=== PATIENT | female | born 1965 | race Caucasian/White ===

== ENCOUNTER → 2020-11-09 12:40 | Outpatient (CLI) | payer OTHER, SELFPAY ==
--- NOTE | ~2020-11-09 | MM_ITS ---
EXAMINATION: MM screening [facility] BI w jackson HISTORY: Screening mammogram TECHNIQUE: Craniocaudal and mediolateral oblique 3-D tomosynthesis images were obtained and synthetic 2-D images were generated. CAD analysis was submitted and interpreted. COMPARISON: 03/04/2019, 08/21/2016 BREAST PARENCHYMAL COMPOSITION: There are scattered areas of fibroglandular density. FINDINGS: There is no evidence of suspicious mass, calcification, or architectural distortion to sugg est malignancy in either breast. There has been no suspicious interval change. IMPRESSION: 1. No mammographic evidence of malignancy. 2. Recommend routine screening mammography in one year. BI-RADS Category 1: Negative Reviewed, dictated and finalized at location A.
--- NOTE | ~2020-11-09 | US_ITS ---
EXAMINATION: US transvaginal EXAM DATE: 11/09/2020 13:18 INDICATION: Post menopausal bleeding. TECHNIQUE: Pelvic transvaginal sonogram was performed. There are multiple grayscale and Doppler imag es available for interpretation. Comparison is made to prior examination from 08/01/2016. FINDINGS: Uterus measures 10.4 x 5.5 x 6.4 cm, with several small fibroids identified measuring up t o 2.6 cm. Endometrial stripe measures up to 10 mm, considered mildly thickened. There are nabothian cysts. There is no free pelvic fluid. Right adnexa: The ovary measures 4.1 x 3.3 x 3.5 cm, contains a hypoechoic cystic lesion measuring 3. 1 x 2.7 x 2.8 cm, nonspecific. Differential diagnosis includes endometrioma, hemorrhagic cyst, cystic ovarian neoplasm (would favor benign histology). This is new compared to 2017. Recommend 6 month fol low-up ultrasound. Ovarian vascular flow confirmed. Left adnexa: The ovary measures 2.0 x 1.3 x 2.3 cm and is morphologically normal. Ovarian vascular fl ow confirmed. IMPRESSION: 1. Mildly thickened endometrium, measurement up to 10 mm. Could be hyperplasia. Cancer not excludabl e. Consider histologic correlation if symptoms persist. 2. Nonspecific right ovarian cystic lesion; recommend 6 month follow-up ultrasound. Reviewed, dictated and finalized at location A. IMPRESSION: 1. Mildly thickened endometrium, measurement up to 10 mm. Could be hyperplasia . Cancer not excludable. Consider histologic correlation if symptoms persist. 2. Nonspecific right ovarian cystic lesion; recommend 6 month follow-up ultras ound.
== END ==
PROVIDERS: Visit Provider Obstetrics & Gynecology
DX: Z12.31 Encounter for screening mammogram for malignant neoplasm of breast (principal); N95.0 Postmenopausal bleeding; R93.89 Abnormal findings on diagnostic imaging of other specified body structures
CPT/HCPCS: 76830; 77063; 77067

== ENCOUNTER → 2021-03-26 13:15 | Outpatient (CLI) | payer OTHER, SELFPAY ==
--- NOTE | ~2021-03-26 | US_ITS ---
EXAMINATION: US transvaginal EXAM DATE: 03/26/2021 13:46 INDICATION: Postmenopausal bleeding. TECHNIQUE: Pelvic transvaginal sonogram was performed. There are multiple grayscale and Doppler imag es available for interpretation. Comparison is made to prior examination from 11/09/2020. FINDINGS: Uterus measures 9.4 x 4.5 x 6.0 cm, with several small fibroids suspected up to 3 cm. Endo metrial stripe measures 4 mm, within normal limits. There is no free pelvic fluid. Right adnexa: The ovary measures 2.2 x 1.2 x 1.6 cm and is morphologically normal. Ovarian vascular f low confirmed. Left adnexa: The ovary measures 2.4 x 1.9 x 2.5 cm and is morphologically normal. Ovarian vascular fl ow confirmed. IMPRESSION: 1. Fibroids. 2. Normal endometrial thickness. Reviewed, dictated and finalized at location A.
== END ==
PROVIDERS: PCP Physician Assistant; Visit Provider Nurse Practitioner
DX: N95.0 Postmenopausal bleeding (principal); D25.9 Leiomyoma of uterus, unspecified
CPT/HCPCS: 76830

== ENCOUNTER → 2022-04-22 15:19 | Outpatient (CLI) | payer OTHER, SELFPAY ==
--- NOTE | ~2022-04-22 | MM_ITS ---
EXAMINATION: MM screening [facility] BI w jackson HISTORY: Screening mammogram TECHNIQUE: Craniocaudal and mediolateral oblique 3-D tomosynthesis images were obtained and synthetic 2-D images were generated. CAD analysis was submitted and interpreted. COMPARISON: 11/09/2020, 03/14/2019, 08/21/2016 BREAST PARENCHYMAL COMPOSITION: There are scattered areas of fibroglandular density. FINDINGS: No suspicious mass, calcification, or architectural distortion are identified in either sanjuana ast to suggest malignancy. There has been no suspicious interval change. IMPRESSION: 1. No mammographic evidence of malignancy. 2. Recommend routine screening mammography in one year. BI-RADS Category 1: Negative Reviewed, dictated and finalized at location A.
--- NOTE | ~2022-04-22 | DEXA_ITS ---
Bone Density Report Name: VERÓNICA THAKUR Age: 56 Sex: Female Ethnicity: White Date of : 1965 Indication: postmenopausal; screening for osteoporosis; parental hip fracture; Referring Provider: KAYLEN, IVAN Study: Bone densitometry was performed. Exam Date: April 22, 2022 Accession number: [id number] Bone Density: Region BMD T-score Z-score Classification AP Spine (L1, L2, L3) 1.008 -0.1 1.2 Normal Femoral Neck (Left) 0.752 -0.9 0.3 Normal Total Hip (Left) 0.988 0.4 1.2 Normal Femoral Neck (Right) 0.695 -1.4 -0.2 Osteopenia Total Hip (Right) 0.935 -0.1 0.8 Normal Total Hip Mean 0.962 0.2 1.0 Normal World Health Organization criteria for BMD impression classify patients as: Normal (T-score at or above -1.0), Osteopenia (T-score between -1.0 and -2.5), or Osteoporosis (T-score at or below -2.5). 10-year Fracture Risk(1): Major Osteoporotic Fracture 13% Hip Fracture 0.6% Reported Risk Factors: [place] (), Neck BMD=0.695, BMI=20.8, parental fracture (1) FRAX(R) Version 3.08. Fracture probability calculated for an untreated patient. Fracture probability may be lower if the patient has received treatment. Clinical Information Provided by Patient: Parent has had a hip fracture Has used the following medications: Vitamin D, Calcium Patient maximum height was 68 Menopause Age: 56 Drinks caffeinated beverages Onset of menses at age 10 Number of children 2 Impression: The patient has low bone mass, based on the Right Femoral Neck T-score. The patient has an estimated ten-year risk of hip fracture of 0.6% and an estimated ten-year risk of major fracture of 13%, based on the WHO FRAX algorithm. The patient has risk factors, including: parental hip fracture. Discussion: BONE DENSITY IS LOW AT ONE OR MORE SKELETAL SITES. This patient's lowest T-score is low at one or more skeletal sites. It meets the World Health Organization's (WHO) criteria for ?low bone mass? (T-score between -1.0 and -2.5). The patient's 10-year risk of fracture as calculated by FRAX is less than the threshold where pharmacological therapy is recommended by the National Osteoporosis Foundation (NOF). However, all treatment decisions require clinical judgment and consideration of individual patient factors, including patient preferences, comorbidities, previous drug use, risk factors not captured in the FRAX model (e.g., frailty, falls, vitamin D deficiency, increased bone turnover, interval significant decline in bone density) and possible under or overestimation of fracture risk by FRAX. The patient should follow a healthful lifestyle (good nutrition with adequate calcium and vitamin D, and appropriate weight-bearing exercise). Follow-Up: Consider repeating this study in 2 to 3 years to reassess this jorge luis
== END ==
PROVIDERS: PCP Physician Assistant; Visit Provider Nurse Practitioner
DX: Z12.31 Encounter for screening mammogram for malignant neoplasm of breast (principal); Z78.0 Asymptomatic menopausal state; M85.851 Other specified disorders of bone density and structure, right thigh
CPT/HCPCS: 77063; 77067; 77080

== ENCOUNTER → 2023-07-29 13:01 | Outpatient (CLI) | payer OTHER, SELFPAY ==
--- NOTE | ~2023-07-29 | MM_ITS ---
EXAMINATION: MM screening [facility] BI w jackson HISTORY: Screening TECHNIQUE: Craniocaudal and mediolateral oblique 3-D tomosynthesis images were obtained and synthetic 2-D images were generated. CAD analysis was submitted and interpreted. COMPARISON Comparison to multiple prior studies sequentially, with oldest reviewed study dated 2016. BREAST PARENCHYMAL COMPOSITION: Not dense: There are scattered areas of fibroglandular density. FINDINGS: There is no evidence of suspicious mass, calcification, or architectural distortion to sugg est malignancy in either breast. There has been no suspicious interval change. IMPRESSION: 1. No mammographic evidence of malignancy. 2. Recommend routine screening mammography in one year. BI-RADS Category 1: Negative Reviewed, dictated and finalized at location A. GNATED BROKER
== END ==
PROVIDERS: PCP Nurse Practitioner; Visit Provider Nurse Practitioner
DX: Z12.31 Encounter for screening mammogram for malignant neoplasm of breast (principal)
CPT/HCPCS: 77063; 77067

== ENCOUNTER 2024-08-22 10:06 | Outpatient (CLI) | payer OTHER, SELFPAY ==
--- NOTE | ~2024-08-22 | DEXA_ITS ---
Bone Density Report Name: VERÓNICA THAKUR Age: 58 Sex: Female Ethnicity: White Date of : 1965 Indication: postmenopausal; screening for osteoporosis; parental hip fracture; height loss; Referring Provider: KAYLEN, IVAN Study: Bone densitometry was performed. Exam Date: August 22, 2024 Accession number: [id number] Bone Density: Region BMD T-score Z-score Classification AP Spine(L1-L4) 1.017 -0.3 1.2 Normal Femoral Neck (Left) 0.716 -1.2 0.1 Osteopenia Total Hip (Left) 0.937 0.0 1.0 Normal Femoral Neck (Right) 0.634 -1.9 -0.6 Osteopenia Total Hip (Right) 0.861 -0.7 0.3 Normal Total Hip Mean 0.899 -0.4 0.7 Normal World Health Organization criteria for BMD impression classify patients as: Normal (T-score at or above -1.0), Osteopenia (T-score between -1.0 and -2.5), or Osteoporosis (T-score at or below -2.5). 10-year Fracture Risk(1): Major Osteoporotic Fracture 16% Hip Fracture 1.2% Reported Risk Factors: [place] (), Neck BMD=0.634, BMI=20.2, parental fracture (1) FRAX(R) Version 3.08. Fracture probability calculated for an untreated patient. Fracture probability may be lower if the patient has received treatment. Clinical Information Provided by Patient: Parent has had a hip fracture Has used the following medications: Vitamin D, Calcium Patient maximum height was 68 Menopause Age: 57 Drinks caffeinated beverages Onset of menses at age 10 Number of children 2 Impression: The patient has low bone mass, based on the Right Femoral Neck T-score. The patient has an estimated ten-year risk of hip fracture of 1.2% and an estimated ten-year risk of major fracture of 16%, based on the WHO FRAX algorithm. The patient has risk factors, including: parental hip fracture. Discussion: BONE DENSITY IS LOW AT ONE OR MORE SKELETAL SITES. This patient's lowest T-score is low at one or more skeletal sites. It meets the World Health Organization's (WHO) criteria for ?low bone mass? (T-score between -1.0 and -2.5). The patient's 10-year risk of fracture as calculated by FRAX is less than the threshold where pharmacological therapy is recommended by the National Osteoporosis Foundation (NOF). However, all treatment decisions require clinical judgment and consideration of individual patient factors, including patient preferences, comorbidities, previous drug use, risk factors not captured in the FRAX model (e.g., frailty, falls, vitamin D deficiency, increased bone turnover, interval significant decline in bone density) and possible under or overestimation of fracture risk by FRAX. The patient should follow a healthful lifestyle (good nutrition with adequate calcium and vitamin D, and appropriate weight-bearing exercise). Follow-Up: Consider repeating this study in 2 to 3 years to reassess this patient's status, or sooner if there is some new clinical indication. Reported by: ISABEL on 08/22/2024 10:43:00 AM. Reviewed, dictated and finalized at location [facility]
--- OUTSIDE RECORDS SUMMARY | 2024-08-22 11:22 | XMS_ITS | Encounter Summary ---
Author Organization [facility] Address [address] [address] Care Team Providers Care Cone Treater Name Role Phone Alber CORDOVA MD, Mk Marie Primary Care Provider [phone] Encounter Details Date Type Department Care Team (Late st Contact Info) Description 11/05/2017 Lab Requisition [facility] Care DermPath Lab [address] [place] [phone] Nu Borrero MD [address] [place] [phone] Social History Tobacco Use Types Packs/Day Years Used Date Smoking Tobacco: Never Smokeless Tobacco: Never Alcohol Use Standard Drinks/Week Comments No 0 (1 standard drink = 0.6 oz pur e alcohol) Sex and Gender Information Value Date Recorded Sex Assigned at Not on file Gender Identity Not on file Sexual Orientation Not on file documented as of this encounter Plan of Treatment Not on file documented as of this encounter Procedures Procedure Name Priority Date/Time Associated Diagnosis Comments DERMATOPATHOLOGY Routine 11/03/2017 12:0 0 AM CDT documented in this encounter Results * DERMATOPATHOLOGY (11/03/2017 12:00 AM CDT) Case Report Dermatopathology Report Case: [id number] Authorizing Provider: Nu Borrero MD Collected: 11/03/2017 12:00 AM Pathologist: Chelsy Nur MD Received: 11/05/2017 06:49 AM Specimen: Skin, right foot 3:26 PM T DERMATOPATHOLOGY LABORATORY Final Diagnosis Specimen A. SKIN, right foot: VERRUCA VULGARIS (B07.8) PRESENT AT MARGIN 3:26 PM T DERMATOPATHOLOGY LABORATORY Clinical History Received is one formalin filled container labeled with the patients name and designated right foot. The specimen consists of a [id number] excision of skin. The margin is inked green. The specimen is bisected lengthwise and submitted in 1 cassette. Jar 0. 3:26 PM T DERMATOPATHOLOGY LABORATORY Gross Description Received is one formalin filled container labeled with the patients name and designated right foot. The specimen consists of a [id number] excision of skin. The margin is inked green. The specimen is bisected lengthwise and submitted in 1 cassette. Jar 0. 3:26 PM CDT DERMATOPATHOLOGY LABORATORY Microscopic Description Specimen A. SKIN, right foot: There is digitated epidermal hyperplasia, hypergranulosis, vacuolated granular layer cells, and compact hyperorthokeratosis . This lesion is present at the margin of the specimen. 3:26 PM T DERMATOPATHOLOGY LABORATORY Disclaimer An external and internal positive and negative controls are appropriate for the histochemical, immunohistochemical and immunofluorescence stain(s) in this case (if any), except where stated explicitly. The performance characteristics of the stain(s) cited in this report were developed and its performance characteristic determined by the Dermatopathology Laboratory at [facility]. These tests need not be, and therefore are not, approved by the [place] Food and Drug Administration. The tests are used for clinical purposes. Billing Codes Specimen Charges Stain Charges 71632 1 3:26 PM CDT DERMATOPATHOLOGY LABORATORY Embedded Images 3:26 PM CDT DERMATOPATHOLOGY LABORATORY Pathology/Cytolog y TISSUE SPECIMEN FROM SKIN / Unknown 11/03/2017 11/05/2017 6:49 AM CDT Nu Borrero MD LAB - PATHOLOGY/C YTOLOGY ORDERABLES DERMATOPATHOLOGY LABORATORY [facility] - Department of Dermatology [address] [place] [address], 5th Floor Lab [address] [phone] documented in this encounter Visit Diagnoses Not on filedocumented in this encounter Care Teams Cone Treater Relationship Specialty Start Date End Date Mk Campo III, MD [address] [address] PCP - General Internal Medicine 01/22/17 documented as of this encounter
--- OUTSIDE RECORDS SUMMARY | 2024-08-22 11:22 | XMS_ITS | Referral Summary ---
Author Organization [facility] Address [address] [place] [address] Phone Care Team Providers Care Reamer Hand Name Role Phone IGOR Pascal Jr., Charles Terrazas Primary Care Provide r Encounters Date Type Department Care Team Description 07/21/2024 Telephone [facility] Primary Care [address] [place] [phone] Scan results 07/21/2024 8:00 AM TOOLSMITH - 07/21/2024 11:59 PM TOOLSMITH Hospital Encounter [facility] [address] [place] [address] Mass of left side of neck Discharge Disposition: Discharge to home or self care 07/21/2024 Orders Only [facility] Primary Care [address] [place] [phone] Charles Pascal Jr., PA Mass of left side of neck (Primary Dx) 07/18/2024 Orders Only [facility] Primary Care [address] [place] [phone] Charles Pascal Jr., PA Mass of left side of neck (Primary Dx) 07/12/2024 2:30 PM TOOLSMITH Office Visit [facility] Primary [facility] [address] [facility] [address] [place] [phone] Charles Pascal Jr., PA Mass of left side of neck (Primary Dx); Screening for colon cancer from Last 3 Months Allergies Active Allergy Reactions Criticality Noted Date Comments Penicillins Other (See comments),Unknown Low 2016 INFANT Medications multivitamin with minerals capsule Take by mouth inspector general before breakfast Active Active Problems No known active problems Immunizations Immunization Administration Dates Next Due Influenza, Unspecified 04/04/2024(Deferr ed: Patient decision),04/30/2023(Deferred: Patient Refused),04/04/2023(Deferred: Patient decision),03/29/2022(Deferred: Patient Refused) Social History Tobacco Use Types Packs/Day Years Used Date Smoking Tobacco: Never Smokeless Tobacco: Never Tobacco Cessation:Counseling Given: Not Answered AUDIT-C Answer Date Recorded Q1: How often do you have a drink containing alc ohol? Never 07/12/2024 Average Number of Drinks Not on file 025 Frequency of Binge Drinking Not on file 06/29 PHQ-2 Answer Date Recorded PHQ-2 Total Score (If total score is 3 or more points, staff should administer the PHQ-9) 0 07/12/2024 Comments No Sex and Gender Information Value Date Recorded Sex Assigned at Not on file Legal Sex Female 5:38 PM TOOLSMITH Gender Identity Not on file Sexual Orientation Not on file Last Filed Vital Signs Vital Sign Reading Time Taken Comments Blood Pressure 100/70 07/12/2024 2:19 PM TOOLSMITH Pulse 73 07/12/2024 2:19 PM TOOLSMITH Temperature 36.9 C (98.5 F) 07/12/2024 2:19 PM TOOLSMITH Respiratory Rate 16 07/12/2024 2:19 PM TOOLSMITH Oxygen Saturation 96% 07/12/2024 2:19 PM TOOLSMITH Inhaled Oxygen Concentration - - Weight 55.3 kg (122 lb) 07/12/2024 2:19 PM TOOLSMITH Height 171.5 cm (5' 7.5 ) 07/12/2024 2:19 PM TOOLSMITH Body Mass Index 18.83 07/12/2024 2:19 PM TOOLSMITH Plan of Treatment Not on file Procedures Procedure Name Priority Date/Time Associated Diagnosis Comments CT SOFT TISSUE NECK W CONTRAST Schedule Routine, Read Routine (OP Routine) 07/21/2024 8:40 AM TOOLSMITH Mass of left side of neck POCT CREATININE FOR CONTRAST EVALUATION Routine 07/21/2024 8:34 AM TOOLSMITH COLONOSCOPY Routine 02/28/2021 SCREENING MAMMOGRAM 2D BILATERAL Routine 04/10/2014 10:45 AM CDT from Last 3 Months or Most Recently Relevant to Health Maintenance Results * CT Neck Soft Tissue W Contrast (07/21/2024 8:40 AM TOOLSMITH) Anatomical Region Laterality Modality Head and Neck N/A Computed Tomogra phy 07/21/2024 8:59 AM TOOLSMITH Narrative 07/21/2024 9:17 AM TOOLSMITH EXAM DESCRIPTION: CT SOFT TISSUE NECK W CONTRAST REASON FOR STUDY: Left posterior neck mass for 6 weeks. No provided history of trauma or inciting and/or aggravating events. No provided past medical, to include cancer, history. No provided past surgical history. TECHNIQUE: Post IV contrast scanning from skull base through lung apices. Reconstructed MPR images reviewed. All images stored on PACS. Automated exposure control was used as a dose optimization technique for this examination. reactor technician reports site of complaint marked for study. CONTRAST TYPE/DOSE: 100 mL Optiray 350 injected via peripheral IV site without reported incident. COMPARISON: No prior relevant imaging available at time of interpretation. FINDINGS: SOFT TISSUE: Within the limitations of robust metal streak artifact pursuant to dental amalgam and/or hardware compromises portions of evaluation, no CT evidence of discrete mass, focal fluid collection, edema, and/or acute inflammatory changes to include at/about the marked site of complaint of the posterior left neck at the level of the superior aspect of C4. ORAL CAVITY/FLOOR OF MOUTH, PHARYNX, LARYNX, HYPOPHARYNX: Apposition of the vocal folds as can be seen with breath holding and/or phonation during imaging without demonstration of acute abnormality. Otherwise, widely patent airway. LYMPHADENOPATHY: No lymphadenopathy by size criteria. MAJOR SALIVARY GLANDS: No CT evidence of discrete mass, focal fluid collection, edema, and/or acute inflammatory changes. THYROID: Normal size. No nodules greater than 1 cm. VASCULATURE: No occlusion or stenosis. INTRACRANIAL/SKULL BASE/INCLUDED ORBITS: Limited intracranial evaluation. No gross evidence of acute intracranial process. No acute orbital abnormality. Ocular lenses and globes normal in conformation and position. PARANASAL SINUSES: No significant mucosal thickening no fluid levels of the paranasal sinuses. Mastoid air cells well-developed and well aerated. CERVICAL SPINE: Constellation of spondylolisthesis with straightening of the cervical lordosis, spondylosis, and degenerative disc disease of the visualized cervicothoracic spine. LUNG APICES: Mild biapical pleuroparenchymal scarring. OTHER: No other significant finding. IMPRESSION: No acute process on CT soft tissue neck with chronic findings as above. THIS IS AN ELECTRONICALLY VERIFIED FINAL REPORT 07/21/2024 9:17 AM - Electronically signed by Hardik Llanos M.D. SHIRLEY: SHIRLEY Report ID: [id number] Reading Location: [id number] Procedure Note Hardik Llanos MD - 07/21/2024 EXAM DESCRIPTION: CT SOFT TISSUE NECK W CONTRAST REASON FOR STUDY: Left posterior neck mass for 6 weeks. No providedhistory of trauma or inciting and/or aggravating events. No provided pastmedical, to include cancer, history. No provided past surgical history. TECHNIQUE: Post IV contrast scanning from skull base through lung apices. Reconstructed MPR images reviewed. All images stored on PACS. Automated exposure control was used as a dose optimization technique for this examination. reactor technician reports site of complaint marked for study. CONTRAST TYPE/DOSE: 100 mL Optiray 350 injected via peripheral IVsite without reported incident. COMPARISON: No prior relevant imaging available at time ofinterpretation. FINDINGS: SOFT TISSUE: Within the limitations of robust metal streak artifact pursuant to dental amalgam and/or hardware compromises portionsof evaluation, no CT evidence of discrete mass, focal fluid collection,edema, and/or acute inflammatory changes to include at/about the marked site of complaint of the posterior left neck at the level of the superior aspectof C4. ORAL CAVITY/FLOOR OF MOUTH, PHARYNX, LARYNX, HYPOPHARYNX: Apposition ofthe vocal folds as can be seen with breath holding and/or phonation duringimaging without demonstration of acute abnormality. Otherwise, widely patentairway. LYMPHADENOPATHY: No lymphadenopathy by size criteria. MAJOR SALIVARY GLANDS: No CT evidence of discrete mass, focal fluid collection, edema, and/or acute inflammatory changes. THYROID: Normal size. No nodules greater than 1 cm. VASCULATURE: No occlusion or stenosis. INTRACRANIAL/SKULL BASE/INCLUDED ORBITS: Limited intracranialevaluation. No gross evidence of acute intracranial process. No acute orbital abnormality. Ocular lenses and globes normal in conformation andposition. PARANASAL SINUSES: No significant mucosal thickening no fluid levels ofthe paranasal sinuses. Mastoid air cells well-developed and well aerated. CERVICAL SPINE: Constellation of spondylolisthesis with straightening ofthe cervical lordosis, spondylosis, and degenerative disc disease of the visualized cervicothoracic spine. LUNG APICES: Mild biapical pleuroparenchymal scarring. OTHER: No other significant finding. IMPRESSION: No acute process on CT soft tissue neck with chronic findingsas above. THIS IS AN ELECTRONICALLY VERIFIED FINAL REPORT 07/21/2024 9:17 AM - Electronically signed by Hardik Llanos M.D. SHIRLEY: SHIRLEY Report ID: [id number] Reading Location: [place] [address] us IGOR Hubbard Jr. IMG CT PROCEDURES Fin al Result * POCT creatinine for contrast evaluation (07/21/2024 8:34 AM TOOLSMITH) Creatinine POC 1.10 0.60 - 1.10 mg/dL Comment:Testing performed by : [facility], [address] [place] [address], [place]., [address] Blood 07/21/2024 8:34 AM TOOLSMITH 07/21/2024 8:34 AM TOOLSMITH us IGOR Hubbard Jr. POINT OF CARE TEST OR DERABLES Final Result DENISE [facility] [address] [facility] [place] [address] * Colonoscopy (02/28/2021) Anatomical Region Laterality Modality Other us Historical Provider ENDOSCOPY PROCEDURES Gauri lj Result * Screening Mammogram 2D Bilateral (04/10/2014 10:45 AM CDT) Anatomical Region Laterality Modality Breast Bilateral Mammography 04/10/2014 10:4 5 AM CDT Impressions 04/10/2014 11:42 AM CDT No mammographic evidence of malignancy. Recommend routine annual screening mammography. ASSESSMENT: BIRADS: 1 - Negative A letter will be mailed to the patient with the results and recommendations. The patient will be entered into a reminder system for an anual screening mammogram in 1 year. THIS IS AN ELECTRONICALLY VERIFIED REPORT 04/10/2014 11:39 AM: Víctor Alvarado M.D. Víctor Alvarado M.D. MD: 11:39 AM 11:[address] [facility] [EOD] Narrative 04/10/2014 11:42 AM CDT EXAMINATION: Bilateral screening mammography HISTORY: Routine screening mammogram. COMPARISON: 11/08/2012, 03/16/2007 TECHNIQUE: Bilateral digital full field of view mammography was performed, with the aid of computer aided detection (CAD). FINDINGS: The breasts are composed of heterogeneously dense tissue, which may limit the sensitivity of mammography. No significant mass, microcalcifications, or other findings are seen. No suspicious interval change is identified relative to the prior studies. Procedure Note Provider, MD Simona - 11/13/2020 EXAMINATION: Bilateral screening mammography HISTORY: Routine screening mammogram. COMPARISON: 11/08/2012, 03/16/2007 TECHNIQUE: Bilateral digital full field of view mammography wasperformed, with the aid of computer aided detection (CAD). FINDINGS: The breasts are composed of heterogeneously dense tissue, whichmay limit the sensitivity of mammography. No significant mass, microcalcifications, or other findings are seen. No suspicious intervalchange is identified relative to the prior studies. IMPRESSION: No mammographic evidence of malignancy. Recommend routine annualscreening mammography. ASSESSMENT: BIRADS: 1 - Negative A letter will be mailed to the patient with the results andrecommendations. The patient will be entered into a reminder system for an anual screening mammogram in 1 year. THIS IS AN ELECTRONICALLY VERIFIED REPORT 04/10/2014 11:39 AM: Víctor Alvarado M.D. Víctor Alvarado M.D. MD: 11:39 AM 11:[address] [facility] [EOD] Sebastien Hardy MD IMG MAMMO PROCEDURES Final Result from Last 3 Months or Most Recently Relevant to [place] [address] [facility] CHOICE PLUS [facility] PLUS Care Teams Reamer Hand Relationship Specialty Start Date End Date Charles Pascal Jr., PA [address] [place] [id number] PCP - General Family Medicine 04/03/22
--- OUTSIDE RECORDS SUMMARY | 2024-08-22 11:22 | XMS_ITS | Clinical Summary ---
Author Organization [facility] Address [address] [place] [address] Care Team Providers Care Stencil Maker Name Role Phone Charles Pascal Primary Care Provider [phone] Charles Pascal Unavailable [phone] Allergies Active Allergy Reactions Criticality Noted Date Comments Penicillin V Unknown 06/14/2021 INFANT Penicillins Unknown 01/22/2017 Medications No known medications Active Problems No known active problems Encounters Date Type Department Care Team Description 07/06/2024 7:45 AM SENIOR HOUSEKEEPER - 07/06/2024 11:59 PM SENIOR HOUSEKEEPER Hospital Encounter [facility] [place] [address] Chey Dumont MD Discharge Disposition: Home or Self Care (Routine Discharge) 07/06/[address] [facility] [place] [address] Chey Dumont MD 07/06/2024 Travel 05/23/2024 9:08 AM SENIOR HOUSEKEEPER - 05/23/2024 11:59 PM SENIOR HOUSEKEEPER Hospital Encounter [facility] [place] [address] Sandra Gaitan FNP-BC Discharge Disposition: Home or Self Care (Routine Discharge) 05/23/2024 Orders Only [facility] [place] [address] Sandra Gaitan FNP-BC 05/23/2024 Travel from Last 3 Months Family History Medical History Relation Comments Cancer Father Dementia Mother Heart Disease Sister Relation Status Comments Father Alive Mother Alive Sister Social History Tobacco Use Types Packs/Day Years Used Date Smoking Tobacco: Never Smokeless Tobacco: Never Tobacco Cessation:Counseling Given: No Comments:non smoker Alcohol Use Standard Drinks/Week Comments Yes 0 (1 standard drink = 0.6 oz pur e alcohol) socially Comments No Sex and Gender Information Value Date Recorded Sex Assigned at Not on file Legal Sex Female 6:19 PM CDT Gender Identity Not on file Sexual Orientation Not on file Last Filed Vital Signs Vital Sign Reading Time Taken Comments Blood Pressure 112/74 06/18/2021 6:50 AM SENIOR HOUSEKEEPER Pulse 71 06/18/2021 6:50 AM SENIOR HOUSEKEEPER Temperature 35.6 C (96.1 F) 06/18/2021 6:34 AM SENIOR HOUSEKEEPER Respiratory Rate 17 06/18/2021 6:50 AM SENIOR HOUSEKEEPER Oxygen Saturation 100% 06/18/2021 6:50 AM SENIOR HOUSEKEEPER Inhaled Oxygen Concentration - - Weight 61.2 kg (135 lb) 06/14/2021 2:23 PM SENIOR HOUSEKEEPER Height 172.7 cm (5' 8 ) 06/14/2021 2:23 PM SENIOR HOUSEKEEPER Body Mass Index 20.53 06/14/2021 2:23 PM SENIOR HOUSEKEEPER Plan of Treatment Health Maintenance Due Date Last Done Comments Cervical Cancer Screening Pap Smear (Age 30 to 64) Every 3 Years 1963 Annual Physical 09/10/1966 Hepatitis C 09/10/1981 DTaP, Tdap and Td Vaccines (1 - Tdap) 09/10/1982 Cervical Cancer Screening Pap with HPV Testing (Age 30 to 64) Every 5 Years 09/10/1993 Cervical Cancer Screening with HPV 09/10/1993 Zoster Vaccines (1 of 2) 09/10/2013 Mammogram Screening 04/10/2016 04/10/2014, 3 COVID-19 Vaccine (2 - 2024-25 season) 2024 12/31/2020 Influenza Adult (#1) 2024 Colorectal Cancer Screening Colonoscopy (10 Years) 06/18/2031 06/18/2021, 06/18/2021, 03/19/2021, Additional history exists RSV Immunization or 60+ Years (1 - 1-dose 75+ series) 09/10/2038 Meningococcal B Vaccine Aged Out No l onger eligible based on patient's age to complete this topic Meningococcal Vaccine Aged Out No kishore anne eligible based on patient's age to complete this topic Pneumococcal Vaccine: Pediatrics (0 to 5 Years) and At-Risk Patients (6 to 64 Years) Aged Out No longer eligible based on patient's age to complete this topic RSV Immunizations Under 20 Months Aged Out No longer eligible based on patient's age to complete this topic Medical Devices Implanted Type Area Bindery Supervisor Device Identifier Shelf Expiration Date Model / Serial / Lot Clip Resolution 360 Deg 2.8mm X 235cm - [id number] Implanted:Qty : 1 on 06/18/2021 by Francisco Estrada DO at [facility] Clip Implant N/A: Abdomen [employer] [id number] 04/08/2024 [id number] 1 / / [id number] Clip Resolution 2.8mm 360 235cm 11mm Open - [id number] Implanted:Qty : 1 on 06/18/2021 by Francisco Estrada DO at [facility] Clip Implant N/A: Abdomen [employer] [id number] 04/08/2024 [id number] 0 / / [id number] Clip Resolution 2.8mm 360 235cm 11mm Open - [id number] Implanted:Qty : 1 on 06/18/2021 by Francisco Estrada DO at [facility] Clip Implant N/A: Abdomen [employer] [id number] 02/28/2024 [id number] 0 / / [id number] Procedures Procedure Name Priority Date/Time Associated Diagnosis Comments CBC W/DIFF AUTOMATED Routine 07/06/2024 7:56 AM SENIOR HOUSEKEEPER Abnormal blood chemistry VITAMIN D, 25 OH Routine 05/23/2024 9:32 AM SENIOR HOUSEKEEPER Normal pelvic exam VITAMIN B-12 Routine 05/23/2024 9:32 AM SENIOR HOUSEKEEPER Normal pelvic exam TSH W/REFLEX Routine 05/23/2024 9:32 AM SENIOR HOUSEKEEPER Normal pelvic exam HEMOGLOBIN, GLYCOSYLATED Routine 05/23/2024 9:32 AM SENIOR HOUSEKEEPER Normal pelvic exam LIPID PANEL Routine 05/23/2024 9:32 AM SENIOR HOUSEKEEPER Normal pelvic exam CBC W/DIFF AUTOMATED Routine 05/23/2024 9:32 AM SENIOR HOUSEKEEPER Normal pelvic exam COLONOSCOPY Routine 06/18/2021 5:26 AM SENIOR HOUSEKEEPER from Last 3 Months or Most Recently Relevant to Health Maintenance Results * CBC W/DIFF AUTOMATED (07/06/2024 7:56 AM SENIOR HOUSEKEEPER) Only the most recent of2 resultswithin the time period is included. WBC 5.22 4.5 - 11.0 x10'3/uL 07/06/2024 8:29 AM SENIOR HOUSEKEEPER [facility] RBC 4.68 4.20 - 5.40 x10'6/uL 07/06/2024 8:29 AM SENIOR HOUSEKEEPER [facility] HGB 13.9 12.0 - 16.0 G/DL 07/06/2024 8:29 AM [facility] HCT 41.2 38.0 - 48.0 % 07/06/2024 8:29 AM SENIOR HOUSEKEEPER [facility] MCV 88.0 81.0 - 99.0 FL 07/06/2024 8:29 AM SENIOR HOUSEKEEPER [facility] MCH 29.7 27.0 - 31.0 PG 07/06/2024 8:29 AM SENIOR HOUSEKEEPER [facility] MCHC 33.7 32.0 - 36.0 G/DL 07/06/2024 8:29 AM [facility] RDW 12.4 11.5 - 14.5 % 07/06/2024 8:29 AM [facility] PLT 222 130 - 400 x10'3/uL 07/06/2024 8:29 AM [facility] MPV 10.3 9.3 - 12.2 FL 07/06/2024 8:29 AM [facility] DIFFERENTIAL TYPE AUTOMATED DIFFERENTIAL 07/06/2024 8:29 AM [facility] NEUTROPHILS % 58.0 % 07/06/2024 8:29 AM [facility] LYMPHOCYTES % 29.3 % 07/06/2024 8:29 AM [facility] MONOCYTES % 7.9 % 07/06/2024 8:29 AM [facility] EOSINOPHILS 3.8 % 07/06/2024 8:29 AM [facility] BASOPHILS 0.8 % 07/06/2024 8:29 AM [facility] IMMATURE GRANS % 0.2 % 07/06/19 8:29 AM [facility] ABS. NEUTROPHILS 3.03 1.80 - 7.70 x10'3/uL 07/06/2024 8:29 AM [facility] ABS. LYMPHOCYTES 1.53 1.00 - 4.80 x10'3/uL 07/06/2024 8:29 AM [facility] ABS. MONOCYTES 0.41 0.24 - 0.86 x10'3/uL 07/06/2024 8:29 AM [facility] ABS. EOSINOPHILS 0.20 0.04 - 0.36 x10'3/uL 07/06/2024 8:29 AM [facility] ABS. BASOPHILS 0.04 0.01 - 0.08 x10'3/uL 07/06/2024 8:29 AM SENIOR HOUSEKEEPER [facility] ABS. IMMATURE GRANULOCYTES 0.01 0.00 - 0.49 x10'3/uL 07/06/2024 8:29 AM SENIOR HOUSEKEEPER [facility] 07/06/2024 7:56 AM SENIOR HOUSEKEEPER Chey Dumont MD LABORATORY Final Res ult [facility] [address] [place] [address], * TSH W/REFLEX (05/23/2024 9:32 AM SENIOR HOUSEKEEPER) TSH 2.070 0.358 - 3.74 uIU/ML 05/23/2024 10:49 AM SENIOR HOUSEKEEPER [facility] Comment: HIGH DOSES OF BIOTIN MAY INTERFERE WITH THIS TEST RESULT. CORRELATION TO CLINICAL HISTORY AND PRESENTATION RECOMMENDED. FREE T4 NOT INDICATED 05/23/2024 9:32 AM SENIOR HOUSEKEEPER Sandra Gaitan [facility] Final Resu lt Performing Organization Address [facility] Co de Phone Number [facility] [address] [place] [address], * HEMOGLOBIN, GLYCOSYLATED (05/23/2024 9:32 AM SENIOR HOUSEKEEPER) HGB A1C 5.3 <5.7 % 05/23/2024 2:31 PM SENIOR HOUSEKEEPER [facility] Comment: ADA GUIDELINES 2010 5.7 TO 6.4% INCREASED RISK OF DIABETES > OR = 6.5% CONSISTENT WITH DIABETES ESTIMATED AVG GLUCOSE 105 mg/dL 05/23/2024 2:31 PM SENIOR HOUSEKEEPER [facility] 05/23/2024 9:32 AM SENIOR HOUSEKEEPER [facility] Final Resu lt [facility] [address] [place] [address], [place] [phone] * VITAMIN B-12 (05/23/2024 9:32 AM SENIOR HOUSEKEEPER) VITAMIN B12 S/P/B 496 254 - 1,320 PG/ML 05/23/2024 11:53 AM SENIOR HOUSEKEEPER [facility] 05/23/2024 9:32 AM SENIOR HOUSEKEEPER [facility] Final Resu lt Performing Organization Address City/[facility]/ZIP Co de Phone Number [facility] [address] [place] [address], [place] [phone] * (ABNORMAL) LIPID PANEL (05/23/2024 9:32 AM SENIOR HOUSEKEEPER) CHOLESTEROL 200(H) <200 MG/DL 05/23/2024 10:49 AM SENIOR HOUSEKEEPER [facility] TRIGLYCERIDES 59 <150 MG/DL 05/23/2024 10:49 AM SENIOR HOUSEKEEPER [facility] HDL 75 >40.0 MG/DL 05/23/2024 10:49 AM SENIOR HOUSEKEEPER [facility] LDL (CALCULATED) 113(H) <100 MG/DL 05/23/2024 10:49 AM SENIOR HOUSEKEEPER [facility] NON HDL CHOLESTEROL 125 <130 MG/DL 05/23/2024 10:49 AM [facility] CHOL/HDL RATIO 2.7 0.0 - 4.5 05/23/2024 10:49 AM SENIOR HOUSEKEEPER [facility] VLDL CALCULATION 12 5 - 55 MG/DL 05/23/2024 10:49 AM SENIOR HOUSEKEEPER [facility] LIPID INTERPRETATION 05/23/2024 10:49 AM SENIOR HOUSEKEEPER [facility] Comment: NIH CONCENSUS REPORT RECOMMENDATIONS: ADULT CHILD LOW RISK: CHOLESTEROL <200 <170 TRIGLYCERIDE <150 --- HDL >=60 --- LDL <100 <110 BORDERLINE: CHOLESTEROL 200-239 170-199 TRIGLYCERIDE 150-199 --- HDL 40-59 --- LDL 100-159 110-129 HIGH RISK: CHOLESTEROL >=240 >=200 TRIGLYCERIDE >=200 --- HDL <40 --- LDL >=160 >=130 05/23/2024 9:32 AM SENIOR HOUSEKEEPER Sandradu Gaitan [facility] Final Resu lt Performing Organization Address City/[facility]/ZIP Co de Phone Number [facility] [address] [place] [address], [place] [phone] * VITAMIN D, 25 OH (05/23/2024 9:32 AM SENIOR HOUSEKEEPER) Pathologist [facility] VITAMIN D 25 HYDROXY S/P/B 50 30 - 100 NG/ML 05/23/2024 10:39 AM SENIOR HOUSEKEEPER [facility] Comment: INTERPRETATION DEFICIENT <20 INSUFFICIENT 20-29 SUFFICIENT 30-100 05/23/2024 9:32 AM SENIOR HOUSEKEEPER [facility] Final Resu lt [facility] [address] [place] [address], [place] [phone] from Last 3 Months Insurance [facility] Member Subscriber Plan / Payer (Ef fective 2021-Present) Name:Tammie Brito Relation to Subscriber:Spouse Name:BALAJI BRITO Date of :1962 Address: [address] [place] [address] Payer ID:[id number] (NAIC) Type:Not on file Address: [address] Care Teams Stencil Maker Relationship Specialty Start Date End Date Charles Pascal PA [address] [place] [id number] PCP - General PHYSICIAN SPRAY CEMENTER 06/17/21 Charles Pascal PA [address] [place] [address] PHYSICIAN SPRAY CEMENTER 06/17/21
--- OUTSIDE RECORDS SUMMARY | 2024-08-22 11:22 | XMS_ITS | Encounter Summary ---
Author Organization [facility] Facility Care Team Providers Care Starch And Prosize Mixer Name Role Phone IGOR Pascal Jr., Charles Terrazas Primary Care Provide r Encounter Details Date Type Department Care Team (Latest Contact Info) Description 09/14/2015 Orders Only [facility] CLINCONV ProviderSimona MD [address] [place] [address] Social History Tobacco Use Types Packs/Day Years Used Date Smoking Tobacco: Never Assessed Comments Unknown Sex and Gender Information Value Date Recorded Sex Assigned at Not on file Legal Sex Female 5:38 PM GROUND TRANSPORTATION OPERATOR Gender Identity Not on file Sexual Orientation Not on file documented as of this encounter Plan of Treatment Not on file documented as of this encounter Procedures Procedure Name Priority Date/Time Associated Diagnosis Comments SCAN - LABS 09/14/2015 12:00 AM CDT documented in this encounter Results * SCAN - LABS (09/14/2015 12:00 AM CDT) Narrative 09/14/2015 12:00 AM CDT Ordered by an unspecified provider. Historical Provider Final Res ult documented in this encounter Visit Diagnoses Not on filedocumented in this encounter Care Teams Starch And Prosize Mixer Relationship Specialty Start Date End Date Charles Pascal Jr., PA [address] [place] [id number] PCP - General Family Medicine 04/03/22 documented as of this encounter
--- OUTSIDE RECORDS SUMMARY | 2024-08-22 11:22 | XMS_ITS | Clinical Summary ---
Author Organization [facility] Address [address] [place] [address] Care Team Providers Care Mechanical Commissioning Engineer Name Role Phone Alber CORDOVA MD, Mk Marie Primary Care Provider [phone] Source Comments [facility],non-owned Affiliates and Associated Physician Practices is amultiple site organization consisting of ambulatory clinics and hospital sitesin [place], [place], [place] and [place]. This disclosure is being madepursuant to the Care Everywhere program and may not contain all informatio navailable regarding this patient. Last updated 18.[facility] Allergies Active Allergy Reactions Criticality Noted Date Comments Penicillins Unknown 01/22/2017 Medications Be aware that medications may not be up to date on this document. Always verify current medications with the patient. No known medications Family History Medical History Relation Name Comments Cancer - Prostate Father Other - Cardiac Father Asthma Neg Hx Autoimmune Disease Neg Hx Bipolar Disorder Neg Hx Cancer - Breast Neg Hx Cancer - Colon Neg Hx Cancer - Other Neg Hx Cancer - Ovarian Neg Hx Cancer - Pancreatic Neg Hx Depression Neg Hx Eczema Neg Hx Hypertension Neg Hx Migraine Neg Hx Osteoporosis Neg Hx Seizures Neg Hx Sudd. <30 Neg Hx Thyroid Disease Neg Hx Ulcerative Colitis Neg Hx Relation Name Status Comments Father Alive Mother Alive Social History Tobacco Use Types Packs/Day Years Used Date Smoking Tobacco: Never Smokeless Tobacco: Never Tobacco Cessation:Counseling Given: No Alcohol Use Standard Drinks/Week Comments No 0 (1 standard drink = 0.6 oz pur e alcohol) Sex and Gender Information Value Date Recorded Sex Assigned at Not on file Gender Identity Not on file Sexual Orientation Not on file Last Filed Vital Signs Vital Sign Reading Time Taken Comments Blood Pressure 120/60 01/22/2017 11:17 AM CDT Pulse 70 01/22/2017 11:17 AM CDT Temperature 36.7 C (98 F) 01/22/2017 11:17 AM CDT Respiratory Rate 20 01/22/2017 11:17 AM CDT Oxygen Saturation 98% 01/22/2017 11:17 AM CDT Inhaled Oxygen Concentration - - Weight 62.6 kg (138 lb) 01/22/2017 11:17 AM CDT Height 172.7 cm (5' 8 ) 01/22/2017 11:17 AM CDT Body Mass Index 20.98 01/22/2017 11:17 AM CDT Plan of Treatment Health Maintenance Due Date Last Done Comments COLOGUARD (AGES 45-75) - COL ON CA SCREENING 1965 COLON MONITORING 1963 COLONOSCOPY - COLON CA SCREENING 1963 CT COLONOGRAPHY - COLON CA SCREENING 1965 Colorectal Cancer Screening 1963 FIT - COLON CA SCREENING 1963 FLEX SIG - COLON CA SCREENING 1963 LIPID TESTING 1965 MAMMOGRAM 1963 PAP SMEAR 1963 HIV SCREENING 09/10/1978 HEPATITIS C SCREENING 09/06/1981 DTAP/TDAP/TD VACCINES (1 - Tdap) 09/10/1982 PNEUMOCOCCAL VACCINE 50+ (1 of 1 - PCV) 09/10/2013 ZOSTER VACCINE (1 of 2) 09/10/2013 COVID-19 VACCINE ( - 2023-2 5 season) 2024 INFLUENZA VACCINE (#1) 2024 DEPRESSION SCREENING 06/29/2024 Respiratory Syncytial Virus (RSV) Vaccine Pt: or over 60 yrs (1 - 1-dose 75+ series) 09/10/2038 HEPATITIS B VACCINE Aged Out No longe r eligible based on patient's age to complete this topic HIB VACCINE Aged Out No longer eligi ble based on patient's age to complete this topic HPV VACCINE Aged Out No longer eligi ble based on patient's age to complete this topic MENINGOCOCCAL (Group B) VACCINE Aged Out No longer eligible based on patient's age to complete this topic MENINGOCOCCAL VACCINE Aged Out No kishore anne eligible based on patient's age to complete this topic Care Teams Mechanical Commissioning Engineer Relationship Specialty Start Date End Date Mk Campo III, MD [address] [facility] [address] [place] [address] PCP - General Internal Medicine 01/22/17
--- OUTSIDE RECORDS SUMMARY | 2024-08-22 11:22 | XMS_ITS | Patient Health Summary ---
Author Organization [facility] Address [address] [facility] [place] [address] Care Team Providers Care Manager Category Name Role Phone Alber CORDOVA MD, Mk Marie Primary Care Provider Note from [facility],non-owned Affiliates and Associated Physician Practices is amultiple site organization consisting of ambulatory clinics and hospital sitesin [place], [place], [place] and [place]. This disclosure is being madepursuant to the Care Everywhere program and may not contain all information available regarding this patient. Last updated 18.[facility] Allergies * Penicillins(Unknown) Medications Be aware that medications may not be up to date on this document. Always verify current medications with the patient. No known medications Social History Tobacco Use Types Packs/Day Years [...] Mass Index 20.98 01/22/2017 11:17 AM CDT Procedures * DERMATOPATHOLOGY(Performed 11/03/2017) Results * DERMATOPATHOLOGY (11/03/2017 12:00 AM CDT) Case Report Dermatopathology Report Case: [id number] Authorizing Provider: Nu Borrero MD Collected: 11/03/2017 12:00 AM Pathologist: Chelsy Nur MD Received: 11/05/2017 06:49 AM Specimen: Skin, right foot 3:26 PM CDT DERMATOPATHOLOGY LABORATORY Final Diagnosis Specimen A. SKIN, right foot: VERRUCA VULGARIS (B07.8) PRESENT AT MARGIN 3:26 PM CDT DERMATOPATHOLOGY LABORATORY Clinical History Received is one formalin filled container labeled with the patients name and designated right foot. The specimen consists of a 2x2w9ye excision of skin. The margin is inked green. The specimen is bisected lengthwise and submitted in 1 cassette. Jar 0. 3:26 PM CDT DERMATOPATHOLOGY LABORATORY Gross Description Received is one formalin filled container labeled with the patients name and designated right foot. The specimen consists of a [id number] excision of skin. The margin is inked green. The specimen is bisected lengthwise and submitted in 1 cassette. Jar 0. 3:26 PM CDT DERMATOPATHOLOGY LABORATORY Microscopic Description Specimen A. SKIN, right foot: There is digitated epidermal hyperplasia, hypergranulosis, vacuolated granular layer cells, and compact hyperorthokeratosis . This lesion is present at the margin of the specimen. 3:26 PM CDT DERMATOPATHOLOGY LABORATORY Disclaimer An external and internal positive and negative controls are appropriate for the histochemical, immunohistochemical and immunofluorescence stain(s) in this case (if any), except where stated explicitly. The performance characteristics of the stain(s) cited in this report were developed and its performance characteristic determined by the Dermatopathology Laboratory at [facility]. These tests need not be, and therefore are not, approved by the [place] Food and Drug Administration. The tests are used for clinical purposes. Billing Codes Specimen Charges Stain Charges 23442 1 8 3:26 PM CDT DERMATOPATHOLOGY LABORATORY Embedded Images 8 3:26 PM CDT DERMATOPATHOLOGY LABORATORY Pathology/Cytolog y TISSUE SPECIMEN FROM SKIN / Unknown 11/03/2017 11/05/2017 6:49 AM CDT Nu Borrero MD LAB - PATHOLOGY/C YTOLOGY ORDERABLES DERMATOPATHOLOGY LABORATORY [facility] - Department of Dermatology [address] [facility], 5th Floor Lab [address] [phone] Care Teams Manager Category Relationship Specialty Start Date End Date Mk Campo III, MD [address] [address] PCP - General Internal Medicine 01/22/17
--- OUTSIDE RECORDS SUMMARY | 2024-08-22 11:22 | XMS_ITS | Clinical Summary ---
Author Organization [facility] Address [address] [place] [id number] Care Team Providers Care Tobacco Scrap Sifter Name Role Phone Unavailable Primary Care Provider Unavailabl e Social History Tobacco Use Types Packs/Day Years Used Date Smoking Tobacco: Never Assessed Comments Unknown Sex and Gender Information Value Date Recorded Sex Assigned at Not on file Legal Sex Female 8:08 AM KIDNEY TRIMMER Gender Identity Not on file Sexual Orientation Not on file Plan of Treatment Health Maintenance Due Date Last Done Comments Hepatitis C Virus (HCV) Screening 1965 TdaP Immunization 1965 Colonoscopy 09/10/2008 Colorectal Cancer Screening 09/10/2008 Cologuard 09/10/2013 Immunochemical Fecal Occult Blood 09/10/2013 Pneumococcal Immunization (5 0+ years) (1 of 1 - PCV) 09/10/2013 Zoster Immunization (1 of 2) 09/10/2013 Influenza Immunization (#1) 2024 SARS-COV-2 Immunization (2 - season) 2024 12/31/2020 Respiratory Syncytial Virus (RSV) Immunization (Adult) (1 - 1-dose 75+ series) 09/10/2038 Hepatitis B Immunization Aged Out No longer eligible based on patient's age to complete this topic Meningococcal Immunization (ACWY) Aged Out No longer eligible based on patient's age to complete this topic Rotavirus Immunization Aged Out No lo nger eligible based on patient's age to complete this topic
--- OUTSIDE RECORDS SUMMARY | 2024-08-22 11:22 | XMS_ITS | Encounter Summary ---
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 Historical Provider Final Res ult documented in this encounter Visit Diagnoses Not on filedocumented in this encounter Care Teams Sheet Metal Erector Relationship Specialty Start Date End Date Charles Pascal Jr., PA [address] [place] [id number] PCP - General Family Medicine 04/03/22 documented as of this encounter
--- OUTSIDE RECORDS SUMMARY | 2024-08-22 11:22 | XMS_ITS | Encounter Summary ---
Author Organization 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 Historical Provider Final Res ult documented in this encounter Visit Diagnoses Not on filedocumented in this encounter Care Teams Network Support Engineer Relationship Specialty Start Date End Date Charles Pascal Jr., PA [address] [place] [address] PCP - General Family Medicine 04/03/22 documented as of this encounter
--- OUTSIDE RECORDS SUMMARY | 2024-08-22 11:22 | XMS_ITS | Encounter Summary ---
Author Organization [facility] Facility Care Team Providers Care Novelty Worker Name Role Phone IGOR Pascal Jr., Charles Terrazas Primary Care Provide r Encounter Details Date Type Department Care Team (Latest Contact Info) Description 01/19/2018 Orders Only [facility] CLINCONV ProviderSimona MD [address] [place] [address] Social History Tobacco Use Types Packs/Day Years Used Date Smoking Tobacco: Never Assessed Comments Unknown Sex and Gender Information Value Date Recorded Sex Assigned at Not on file Legal Sex Female 5:38 PM CASEWORK SPECIALIST Gender Identity Not on file Sexual Orientation Not on file documented as of this encounter Plan of Treatment Not on file documented as of this encounter Procedures Procedure Name Priority Date/Time Associated Diagnosis Comments COLONOSCOPY - SCAN 01/19/2018 12 :00 AM CDT documented in this encounter Results * COLONOSCOPY - SCAN (01/19/2018 12:00 AM CDT) Narrative 01/19/2018 12:00 AM CDT Ordered by an unspecified provider. Historical Provider Final Res ult documented in this encounter Visit Diagnoses Not on filedocumented in this encounter Care Teams Novelty Worker Relationship Specialty Start Date End Date Charles Pascal Jr., PA [address] [place] [address] PCP - General Family Medicine 04/03/22 documented as of this encounter
--- OUTSIDE RECORDS SUMMARY | 2024-08-22 11:22 | XMS_ITS | Clinical Summary ---
Author Organization [facility] Address [address] [place] [address] Phone Care Team Providers Care Physician Office Assistant Name Role Phone IGOR Pascal Jr., Charles Terrazas Primary Care Provide r Allergies Active Allergy Reactions Criticality Noted Date Comments Penicillins Other (See comments),Unknown Low 2016 Medications multivitamin with minerals capsule Take by mouth neurosurgical nurse practitioner before breakfast Active Active Problems No known active problems Encounters Date Type Department Care Team Description 07/21/2024 8:00 AM DIGITAL FORENSIC EXAMINER - 07/21/2024 11:59 PM DIGITAL FORENSIC EXAMINER Hospital Encounter [facility] [address] [place] [address] Mass of left side of neck Discharge Disposition: Discharge to home or self care 07/21/2024 Telephone [facility] Primary Care [address] [place] [phone] Scan results 07/21/2024 Orders Only [facility] Primary Care [address] [place] [phone] Charles Pascal Jr., PA Mass of left side of neck (Primary Dx) 07/18/2024 Orders Only [facility] Primary Care [address] [place] [phone] Charles Pascal Jr., PA Mass of left side of neck (Primary Dx) 07/12/2024 2:30 PM DIGITAL FORENSIC EXAMINER Office Visit [facility] Primary Care [address] [place] [phone] Charles Pascal Jr., PA Mass of left side of neck (Primary Dx); Screening for colon cancer from Last 3 Months Immunizations Immunization Administration Dates Next Due Influenza, Unspecified 04/04/2024(Deferr ed: Patient decision),04/30/2023(Deferred: Patient Refused),04/04/2023(Deferred: Patient decision),03/29/2022(Deferred: Patient Refused) Surgical History Surgery Date Site/Laterality Comments SECTION Family History Medical History Relation Name Comments Cancer Brother Heart disease Brother Cancer Father Diabetes Father Heart disease Father Kidney disease Father Stroke Mother Relation Name Status Comments Brother Father Alive Mother Alive Social History Tobacco [...] on file Legal Sex Female 5:38 PM DIGITAL FORENSIC EXAMINER Gender Identity Not on file Sexual Orientation Not on file Obstetrics History Last Filed Vital Signs Vital Sign Reading Time Taken Comments Blood Pressure 100/70 07/12/2024 2:19 PM DIGITAL FORENSIC EXAMINER Pulse 73 07/12/2024 2:19 PM DIGITAL FORENSIC EXAMINER Temperature 36.9 C (98.5 F) 07/12/2024 2:19 PM DIGITAL FORENSIC EXAMINER Respiratory Rate 16 07/12/2024 2:19 PM DIGITAL FORENSIC EXAMINER Oxygen Saturation 96% 07/12/2024 2:19 PM DIGITAL FORENSIC EXAMINER Inhaled Oxygen Concentration - - Weight 55.3 kg (122 lb) 07/12/2024 2:19 PM DIGITAL FORENSIC EXAMINER Height 171.5 cm (5' 7.5 ) 07/12/2024 2:19 PM DIGITAL FORENSIC EXAMINER Body Mass Index 18.83 07/12/2024 2:19 PM DIGITAL FORENSIC EXAMINER Plan of Treatment Health Maintenance Due Date Last Done Comments Cervical Cancer Screening 1965 Hepatitis C Screening 1965 DTaP/Tdap/Td Vaccine (1 - Tdap) 09/10/1974 Hepatitis B Screening 09/10/1981 Regular Well Visit/Exam 18-64 09/10/1981 Zoster Vaccine (1 of 2) 09/10/2013 Breast Cancer Screening-Mammogram 04/10/2015 04/10/2014, 11/08/2012 Covid-19 Vaccine (2 - season) 2024 12/31/2020 Influenza Vaccine (#1) 2024 Depression Screening 07/12/2025 07/12/2024, 04/04/2022 Colon Cancer Screening-Colonoscopy 02/28/2031 02/28/2021 Colon Cancer Screening-CT Colonography Discontinued 02/28/2021 Colon Cancer Screening-DNA Stool Discontinued 02/28/2021 Colon Cancer Screening-FIT Discontinued 02/28/2021 Colon Cancer Screening-Sigmoidoscopy Discontinued 02/28/2021 Pneumococcal vaccine <65 Aged Out No longer eligible based on patient's age to complete this topic Procedures Procedure Name Priority Date/Time Associated Diagnosis Comments CT SOFT TISSUE NECK W CONTRAST Schedule Routine, Read Routine (OP Routine) 07/21/2024 8:40 AM DIGITAL FORENSIC EXAMINER Mass of left side of neck POCT CREATININE FOR CONTRAST EVALUATION Routine 07/21/2024 8:34 AM DIGITAL FORENSIC EXAMINER COLONOSCOPY Routine 02/28/2021 SCREENING MAMMOGRAM 2D BILATERAL Routine 04/10/2014 10:45 AM CDT from Last 3 Months or Most Recently Relevant to Health Maintenance Results * CT Neck Soft Tissue W Contrast (07/21/2024 8:40 AM DIGITAL FORENSIC EXAMINER) Anatomical Region Laterality Modality Head and Neck N/A Computed Tomogra phy 07/21/2024 8:59 AM DIGITAL FORENSIC EXAMINER Narrative 07/21/2024 9:17 AM DIGITAL FORENSIC EXAMINER EXAM DESCRIPTION: CT SOFT TISSUE NECK W [...] a dose optimization technique for this examination. 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 SHIRLEY: SHIRLEY Report ID: [id number] Reading Location: [id number] Procedure Note Hardik Llanos MD - 07/21/2024 [...] a dose optimization technique for this examination. 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 SHIRLEY: SHIRLEY Report ID: [id number] Reading Location: [place] [address] [address] PROCEDURES Fin al Result * POCT creatinine for contrast evaluation (07/21/2024 8:34 AM DIGITAL FORENSIC EXAMINER) Creatinine POC 1.10 0.60 - 1.10 mg/dL Comment:Testing performed by : [facility], [address] [place] [address]., [id number] Blood 07/21/2024 8:34 AM DIGITAL FORENSIC EXAMINER 07/21/2024 8:34 AM DIGITAL FORENSIC EXAMINER IGOR Hubbard Jr. POINT OF CARE TEST OR DERABLES Final Result [facility] [address] [facility] Department [place] [address] * Colonoscopy (02/28/2021) Anatomical Region Laterality Modality Other Historical Provider MD ENDOSCOPY PROCEDURES Gauri l Result * Screening Mammogram 2D Bilateral (04/10/2014 [...] AN ELECTRONICALLY VERIFIED REPORT 04/10/2014 11:39 AM: Vcítor Alvarado M.D. Víctor Alvarado M.D. : 11:39 AM 11:39 AM [facility] [EOD] Narrative 04/10/2014 11:42 AM CDT EXAMINATION: [...] AM: Víctor Alvarado M.D. Víctor Alvarado M.D. : 11:39 AM 11:39 AM [facility] [EOD] us Sebastien Hardy MD IMG MAMMO PROCEDURES Final Result from Last 3 Months or Most Recently Relevant to Health Maintenance Insurance [facility] [employer] [facility] [employer] Care Teams Physician Office Assistant Relationship Specialty Start Date End Date Charles Pascal Jr., PA [address] [place] [phone] PCP - General Family Medicine 04/03/22
--- OUTSIDE RECORDS SUMMARY | 2024-08-22 11:22 | XMS_ITS | Encounter Summary ---
Author Organization [facility] Address [address] [place] [address] Care Team Providers Care Video Systems Engineer Name Role Phone Charles Pascal Primary Care Provider [phone] Charles Pascal Unavailable [phone] Encounter Details Date Type Department Care Team (Late st Contact Info) Description 01/08/2024 ColorChip Message Enc [facility] [employer] [place] [address] De[place], [facility] Provider Full proxy access Social History Tobacco Use Types Packs/Day Years Used Date Smoking Tobacco: Never Smokeless Tobacco: Never Comments:non smoker Alcohol Use Standard Drinks/Week Comments [...] on file documented as of this encounter Visit Diagnoses Not on filedocumented in this encounter Care Teams Video Systems Engineer Relationship Specialty Start Date End Date Charles Pascal PA [address] [place] [address] PCP - General PHYSICIAN TOOL AND DIE MACHINIST 06/17/21 Charles Pascal PA [address] [place] [phone] PHYSICIAN TOOL AND DIE MACHINIST 06/17/21 documented as of this encounter
--- OUTSIDE RECORDS SUMMARY | 2024-08-22 11:22 | XMS_ITS | Referral Summary ---
Author Organization [facility] Address [address] [place] [address] Care Team Providers Care Linux Devops Engineer Name Role Phone Alber CORDOVA MD, Mk Marie Primary Care Provider Source Comments [facility],non-owned Affiliates and Associated Physician Practices is amultiple site organization consisting of ambulatory clinics and hospital sitesin [place], [place], [place] and [place]. This disclosure is being madepursuant to the Care Everywhere program and may not contain all information available regarding this patient. Last updated 18.[facility] Allergies Active Allergy Reactions Criticality Noted Date [...] 01/22/2017 11:17 AM CDT Plan of Treatment Not on file Care Teams Linux Devops Engineer Relationship Specialty Start Date End Date Mk Campo III, MD [address] [facility] [address] [place] [address] PCP - General Internal Medicine 01/22/17
== END 2024-08-22 10:07 | disposition home or self-care (01) ==
LOC: ANHIMG 10:12
PROVIDERS: PCP Physician Assistant; Visit Provider Nurse Practitioner
DX: M85.852 Other specified disorders of bone density and structure, left thigh (principal); M85.851 Other specified disorders of bone density and structure, right thigh; Z78.0 Asymptomatic menopausal state
CPT/HCPCS: 77080

== ENCOUNTER 2024-10-27 01:50 | Day surgery (SDC) | payer OTHER, SELFPAY ==
[2024-10-14 14:53] VITALS: BMI 19.6
--- NOTE | 2024-10-26 14:11 | WPDANESEPPF ---
Anes - Initial Pre Proc Eval Procedure: Operation Date: 10/27/24 09:00 Proposed Procedures p Screening Colonoscopy - Elie Avendano MD Date/Time: 10/26/24 14:11 Surgeon: Elie Avendano MD Pre Op Diagnosis: screening colon Patient Data Age: 59 Gender: F Height: 1.7 m Weight: 57 kg Allergies Allergy/AdvReac Type Severity Reaction Status Date / Time Penicillins Allergy Intermediate Rash Verified 10/27/24 07:50 Home Medications ?Medication ?Instructions ?Recorded ?Confirmed ?Type calcium 250 mg tablet 250 mg PO DAILY 10/14/24 10/27/24 History Patient hx anesthesia problems: none Family hx anesthesia problems: none Results Review: All pre-operative results and documents have been reviewed as part of the pre-operative evaluation. [facility] Past Medical History Medical History (Updated 10/26/24 @ 14:11 by Brad Paige DO) Hyperlipidemia Surgical History Surgical History (Updated 10/26/24 @ 14:11 by Brad Paige DO) History of Social History Social History Smoking status: Never smoker Alcohol intake: never Substance use: never Substance use type: does not use Living arrangements: with family Spiritual care concerns: No Anes - Eval Final PreProcedure Day of Procedure 10/26/24 14:11 Patient weight: normal Heart: regular rate and rhythm Lungs: clear to auscultation and normal air movement Airway: Mallampati scale class II Neurological: alert and oriented Last oral intake: >/= 8 hours ASA classification: II Emergent: no Anesthetic plan: proceed Anesthesia type and monitoring: general GIVS and standard monitoring Results Review: All pre-operative results and documents have been reviewed as part of the pre-operative evaluation. Informed Consent: The patient's anesthetic plan and its attendant risks and benefits were discussed with the patient/family/POA. Questions were solicited and answers provided to the satisfaction of the patient/family/POA.
--- OUTSIDE RECORDS SUMMARY | 2024-10-27 01:52 | XMS_ITS | Encounter Summary ---
Author Organization [facility] Facility Care Team Providers Care Technical Services Coordinator Name Role Phone IGOR Pascal Jr., Charles Terrazas Primary Care Provide r Encounter Details Date Type Department Care Team (Latest Contact Info) Description 09/04/2017 Orders Only MMG CLINCONV Provider, MD Simona [address] [place] [address] Social History Tobacco Use Types Packs/Day Years Used Date Smoking Tobacco: Never Assessed Comments Unknown Sex and Gender Information Value Date Recorded Sex Assigned at Not on file Legal Sex Female 5:38 PM MOVER HELPER Gender Identity Not on file Sexual Orientation [...] Diagnoses Not on filedocumented in this encounter Additional Health Concerns Infection Onset Date Last Indicated Resolved Time COVID: Suspected 08/30/2024 08/30/2024 08/30/2024 4:07 PM MOVER HELPER documented as of this encounter Care Teams Technical Services Coordinator Relationship Specialty Start Date End Date Charles Pascal Jr., PA [address] [place] [address] PCP - General Family Medicine 04/03/22 documented as of this encounter
--- OUTSIDE RECORDS SUMMARY | 2024-10-27 01:52 | XMS_ITS | Encounter Summary ---
Author Organization [facility] Facility Care Team Providers Care Photonics Technician Name Role Phone IGRO Pascal Jr., Charles Terrazas Primary Care Provide r Encounter Details Date Type Department Care Team (Latest Contact Info) Description 11/03/2017 Orders Only MMG CLINCONV Provider, MD Simona [address] [place] [address] Social History Tobacco Use Types Packs/Day Years Used Date Smoking Tobacco: Never Assessed Comments Unknown Sex and Gender Information Value Date Recorded Sex Assigned at Not on file Legal Sex Female 5:38 PM QUANTITATIVE RESEARCH ANALYST Gender Identity Not on file Sexual Orientation [...] COVID: Suspected 08/30/2024 08/30/2024 08/30/2024 4:07 PM QUANTITATIVE RESEARCH ANALYST documented as of this encounter Care Teams Photonics Technician Relationship Specialty Start Date End Date Charles Pascal Jr., PA [address] [place] [address] PCP - General Family Medicine 04/03/22 documented as of this encounter
--- OUTSIDE RECORDS SUMMARY | 2024-10-27 01:52 | XMS_ITS | Clinical Summary ---
Author Organization [facility] Address [address] [place] [address] Care Team Providers Care Service Trainer Name Role Phone Alber CORDOVA MD, Mk Marie Primary Care Provider Source Comments [facility],non-owned Affiliates and Associated Physician Practices is amultiple site organization consisting of ambulatory clinics and hospital sitesin [place], [place], [place] and [place]. This disclosure is being madepursuant to the Care Everywhere program and may not contain all information available regarding this patient. Last updated 18.[facility] Allergies Active Allergy Reactions Criticality Noted Date Comments Penicillins Unknown 01/22/2017 Medications * Be aware that medications may not be up to date on this document. Alwaysverify current medications with the patient. No known [...] drink = 0.6 oz pur e alcohol) Comments No Sex and Gender Information Value Date Recorded Sex Assigned at Not on file Legal Sex Female 9:23 AM CDT Gender Identity Not on file Sexual [...] SCREENING 1965 LIPID TESTING 1965 MAMMOGRAM 1965 HIV SCREENING 09/10/1978 HEPATITIS C SCREENING 09/06/1981 DTAP/TDAP/TD VACCINES (1 - Tdap) 09/10/1982 PNEUMOCOCCAL VACCINE 50+ (1 of 1 - PCV) 09/10/2013 ZOSTER VACCINE (1 of 2) 09/10/2013 COVID-19 VACCINE ( - 2023-2 5 season) 2024 DEPRESSION SCREENING 06/29/2024 INFLUENZA VACCINE (Season Ended) 2025 Respiratory Syncytial Virus (RSV) Vaccine Pt: or [...] to complete this topic MENINGOCOCCAL (Group B) VACC INE SHARED DECISION-MAKING Aged Out No longer eligibl e based on patient's age to complete this topic MENINGOCOCCAL GROUPS A/C/Y/W VACCINE Aged Out No longer eligible b ased on patient's age to complete this topic Insurance Care Teams Service Trainer Relationship Specialty Start Date End Date Mk Campo III, MD [address] [facility] [address] [place] [address] PCP - General Internal Medicine 01/22/17
--- OUTSIDE RECORDS SUMMARY | 2024-10-27 01:52 | XMS_ITS | Encounter Summary ---
Author Organization [facility] Facility Care Team Providers Care Pug Mill Operator Helper Name Role Phone IGOR Pascal Jr., Charles Terrazas Primary Care Provide r Encounter Details Date Type Department Care Team (Latest Contact Info) Description 01/19/2018 Orders Only MMG CLINCONV Provider, MD Simona [address] [place] [address] Social History Tobacco Use Types Packs/Day Years Used Date Smoking Tobacco: Never Assessed Comments Unknown Sex and Gender Information Value Date Recorded Sex Assigned at Not on file Legal Sex Female 5:38 PM STOCK CRANE OPERATOR Gender Identity Not on file Sexual [...] COVID: Suspected 08/30/2024 08/30/2024 08/30/2024 4:07 PM STOCK CRANE OPERATOR documented as of this encounter Care Teams Pug Mill Operator Helper Relationship Specialty Start Date End Date Charles Pascal Jr., PA [address] [place] [phone] PCP - General Family Medicine 04/03/22 documented as of this encounter
--- OUTSIDE RECORDS SUMMARY | 2024-10-27 01:52 | XMS_ITS | Clinical Summary ---
Author Organization [facility] Address [address] [place] [address] Phone Care Team Providers Care Library Services Coordinator Name Role Phone IGOR Pascal Jr., Charles Terrazas Primary Care Provide r Allergies Active Allergy Reactions Criticality Noted Date Comments Penicillins Other (See comments),Unknown Low 2016 INFANT INFANT Medications multivitamin with minerals capsule Take by mouth urban designer before breakfast Active ferrous sulfate 325 mg (65 mg of elemental iron) tabletIndicatio ns:Iron Deficiency Anemia Take 1 tablet (325 mg total) by mouth daily with breakfast 90 tablet 1 5 09/01/19 26 Active Active Problems No known active problems Encounters Date Type Department Care Team Description 08/31/2024 Orders Only [facility] [address] [place] [phone] Charles Pascal Jr., PA 08/31/2024 Telephone [facility] [address] [place] [address] [address] [place] [phone] Charles Pascal Jr., PA Test Results 08/30/2024 5:45 PM HOIST WORKER Lab [facility] [address] [place] [address] Fatigue, unspecified type; Fever, unspecified fever cause 08/30/2024 4:00 PM HOIST WORKER Office Visit [facility] [address] [place] [address] [place] [phone] Charles Pascal Jr., PA Fatigue, unspecified type (Primary Dx); Fever, unspecified fever cause 08/30/[address] [phone] Yandy Dave MD 08/30/2024 Telephone [facility] [address] [place] [address] [place] [phone] Charles Pascal Jr. PA After Hours 08/30/2024 Nurse Triage [facility] [address] [place] [address] [place] [phone] Charles Pascal Jr., PA from Last 3 Months Immunizations Immunization Administration Dates Next Due Influenza, Unspecified 08/30/2024(Deferr ed: Patient decision),04/30/2023(Deferred: Patient Refused),04/04/2023(Deferred: Patient decision),03/29/2022(Deferred: [...] have a drink containing alc ohol? Never 08/30/2024 Average Number of Drinks Not on file 025 Frequency of Binge Drinking Not on file 09/2024 PHQ-2 Answer Date Recorded PHQ-2 Total Score (If total score is 3 or more points, staff should administer the PHQ-9) 0 07/12/2024 Comments No Sex and Gender Information Value Date Recorded Sex Assigned at Not on file Legal Sex Female 5:38 PM HOIST WORKER Gender Identity Not on file Sexual Orientation Not on file Obstetrics History Last Filed Vital Signs Vital Sign Reading Time Taken Comments Blood Pressure 116/70 08/30/2024 3:43 PM HOIST WORKER Pulse 71 08/30/2024 3:43 PM HOIST WORKER Temperature 36.6 C (97.9 F) 08/30/2024 3:43 PM HOIST WORKER Respiratory Rate 16 08/30/2024 3:43 PM HOIST WORKER Oxygen Saturation 97% 08/30/2024 3:43 PM HOIST WORKER Inhaled Oxygen Concentration - - Weight 56.2 kg (124 lb) 08/30/2024 3:43 PM HOIST WORKER Height 171.5 cm (5' 7.5 ) 08/30/2024 3:43 PM HOIST WORKER Body Mass Index 19.13 08/30/2024 3:43 PM HOIST WORKER Plan of Treatment Health Maintenance Due Date Last Done Comments Cervical Cancer Screening 1965 Hepatitis C Screening 1965 DTaP/Tdap/Td Vaccine (1 - Tdap) 09/10/1974 Hepatitis B Screening 09/10/1981 Regular Well Visit/Exam 18-64 09/10/1981 Zoster Vaccine (1 of 2) 09/10/2013 Breast Cancer Screening-Mammogram 04/10/2015 04/10/2014, 11/08/2012 Covid-19 Vaccine ( season) 2024 12/31/2020 Influenza Vaccine (Season Ended) 2025 Depression Screening 07/12/2025 07/12/2024, 04/04/2022 Colon Cancer Screening-Colonoscopy 02/28/2031 02/28/2021 Colon Cancer Screening-CT Colonography Discontinued 02/28/2021 Colon Cancer Screening-DNA Stool Discontinued 02/28/2021 Colon Cancer Screening-FIT Discontinued 02/28/2021 Colon Cancer Screening-Sigmoidoscopy Discontinued 02/28/2021 Pneumococcal vaccine <65 Aged Out No longer eligible based on patient's age to complete this topic Procedures Procedure Name Priority Date/Time Associated Diagnosis Comments EGFR Routine 08/30/2024 5:57 PM HOIST WORKER Fatigue, unspecified type Fever, unspecified fever cause DIFFERENTIAL AUTO Routine 08/30/2024 5:5 7 PM HOIST WORKER Fatigue, unspecified type Fever, unspecified fever cause CBC WITH AUTO DIFFERENTIAL Routine 08/30/2024 5:57 PM HOIST WORKER Fatigue, unspecified type Fever, unspecified fever cause COMPREHENSIVE METABOLIC PANEL Routine 08/30/2024 5:57 PM HOIST WORKER Fatigue, unspecified type Fever, unspecified fever cause TSH Routine 08/30/2024 5:57 PM HOIST WORKER Fatigue, unspecified type Fever, unspecified fever cause IRON Routine 08/30/2024 5:57 PM HOIST WORKER Fatigue, unspecified type Fever, unspecified fever cause VITAMIN B12 Routine 08/30/2024 5:57 PM HOIST WORKER Fatigue, unspecified type Fever, unspecified fever cause MONONUCLEOSIS SCREEN Routine 08/30/2024 5:57 PM HOIST WORKER Fatigue, unspecified type Fever, unspecified fever cause POC INFLUENZA A/B, COVID-19 ANTIGEN Routine 08/30/2024 4:06 PM HOIST WORKER Fatigue, unspecified type Fever, unspecified fever cause COLONOSCOPY Routine 02/28/2021 SCREENING MAMMOGRAM 2D BILATERAL Routine 04/10/2014 10:45 AM CDT from Last 3 Months or Most Recently Relevant to Health Maintenance Results * eGFR (08/30/2024 5:57 PM HOIST WORKER) eGFR 76 >=60 mL/min/1. 73 m2 Comment: Interpretive Data Reference Interval Normal >/= 90 mL/min/1.73m2 Mildly decreased* 60 - 89 mL/min/1.73m2 Mildly to moderately decreased 45 - 59 mL/min/1.73m2 Moderately to severely decreased 30 - 44 mL/min/1.73m2 Severely decreased 15 - 29 mL/min/1.73m2 Kidney Failure < 15 mL/min/1.73m2 *Relative to young adult level Estimated glomerular filtration rate is determined by the 2020 CKD-EPI equation recommended by the National Kidney Foundation (A Unifying Approach to GFR Estimation: Recommendations of the NKF-ASK Task Force on Reassessing the Inclusion of Race in Diagnosing Kidney Disease, JASN 2020). The CKD-EPI equation should not be used for patients with unstable renal function and has not been validated in children and those over 70. Current interpretive data was last reviewed 2021. Testing performed by: [address] [address] Blood 08/30/2024 5:57 PM HOIST WORKER 08/30/2024 6:12 PM HOIST WORKER IGOR Hubbard Jr. LAB BLOOD ORDERABLES Final Result [facility] [address] [facility] [place] [address] * Differential, auto (08/30/2024 5:57 PM HOIST WORKER) Neutrophil abs 3.8 1.5 - 6.5 K/cumm Comment:Testing performed by : [address] [address] Imm gran abs 0.0 0.0 - 0.1 K/cumm DENISE Comment:Testing performed by : [address] [address] Lymphocyte abs 2.2 0.8 - 3.3 K/cumm DENISE Comment:Testing performed by : [address] [address] Monocyte abs 0.5 0.2 - 0.8 K/cumm DENISE Comment:Testing performed by : [address] [address] Eosinophil abs 0.2 0.0 - 0.5 K/cumm DENISE Comment:Testing performed by : [address] [address] Basophil abs 0.1 0.0 - 0.1 K/cumm DENISE Comment:Testing performed by : [address] [address] Neutrophil pct 56.2 % DENISE Comment: Interpretive Data Percent cell count reference ranges are not reported, since discordance with absolute values may lead to misinterpretation of CBC data. Current Interpretive Data was last revised on 2017. Testing performed by: [address] [address] Imm gran pct 0.1 % [facility] Comment: Interpretive Data Percent cell count reference ranges are not reported, since discordance with absolute values may lead to misinterpretation of CBC data. Current Interpretive Data was last revised on 2017. Testing performed by: [address] [address] Lymphocyte pct 33.2 % [facility] Comment: Interpretive Data Percent cell count reference ranges are not reported, since discordance with absolute values may lead to misinterpretation of CBC data. Current Interpretive Data was last revised on 2017. Testing performed by: [address] [address] Monocyte pct 7.3 % [facility] Comment: Interpretive Data Percent cell count reference ranges are not reported, since discordance with absolute values may lead to misinterpretation of CBC data. Current Interpretive Data was last revised on 2017. Testing performed by: [address] [address] Eosinophil pct 2.5 % [facility] Comment: Interpretive Data Percent cell count reference ranges are not reported, since discordance with absolute values may lead to misinterpretation of CBC data. Current Interpretive Data was last revised on 2017. Testing performed by: [address] [address] Basophil pct 0.7 % [facility] Comment: Interpretive Data Percent cell count reference ranges are not reported, since discordance with absolute values may lead to misinterpretation of CBC data. Current Interpretive Data was last revised on 2017. Testing performed by: [address] [address] Blood 08/30/2024 5:57 PM HOIST WORKER 08/30/2024 6:12 PM HOIST WORKER us IGOR Hubbard Jr. LAB BLOOD ORDERABLES Final Result DENISE [address] [facility] [place] [address] * CBC with auto differential (08/30/2024 5:57 PM HOIST WORKER) [facility] WBC 6.7 3.8 - 9.9 K/cumm Comment:Testing performed by : [address] [address] Hgb 14.2 11.9 - 15.5 g/dL DENISE Comment:Testing performed by : [address] [address] Hct 41.4 35.6 - 45.5 % DENISE Comment:Testing performed by : [address], [address] Plt 312 150 - 400 K/cumm DENISE Comment:Testing performed by : [address] [address] MPV 9.5 9.1 - 12.3 fL DENISE Comment:Testing performed by : [address], [address] RBC 4.73 3.90 - 5.20 M/cumm DENISE Comment:Testing performed by : [address] [address] MCV 87.5 81.3 - 96.4 fL DENISE Comment:Testing performed by : [address] [address] MCH 30.0 27.1 - 33.3 pg DENISE Comment:Testing performed by : [address], [address] MCHC 34.3 32.3 - 35.7 g/dL DENISE Comment:Testing performed by : [address], [address] RDW CV 11.9 11.1 - 14.9 % DENISE Comment:Testing performed by : [address], [address] RDW SD 38.2 35.7 - 48.1 fL DENISE Comment:Testing performed by : [address], [address] NRBC abs 0.00 0.00 - 0.01 K/cumm DENISE Comment:Testing performed by : [address] [address] Blood 08/30/2024 5:57 PM HOIST WORKER 08/30/2024 6:12 PM HOIST WORKER IGOR Hubbard Jr. LAB BLOOD ORDERABLES Final Result Performing Organization Address City/[facility] Co de Phone Number DENISE [facility] [place] [address] * Mononucleosis screen (08/30/2024 5:57 PM HOIST WORKER) Pathologist [facility] Ada Screen Negative Negative Comment: Interpretive Data Heterophile antibodies are short-lived. Therefore, a positive test is consistent with recent infection. Heterophile antibodies fail to develop in approximately 15% of adults and in a higher percentage of children. Dre-Braden virus specific serology (IgG and IgM) testing should be performed to exclude disease in patients with a negative antibody test. Current interpretive data was last revised on 2022. Testing performed by: [address] [address] Blood 08/30/2024 5:57 PM HOIST WORKER 08/30/2024 6:12 PM HOIST WORKER IGOR Hubbard Jr. LAB BLOOD ORDERABLES Final Result Performing Organization Address [facility] Co de Phone Number [place] [id number] [facility] [place] [address] * TSH (08/30/2024 5:57 PM HOIST WORKER) [facility] Thyroid Stimulating Hormone 3.42 0.30 - 4.20 mcIUnit/mL Comment:Testing performed by : [address] [address] Blood 08/30/2024 5:57 PM HOIST WORKER 08/30/2024 6:12 PM HOIST WORKER IGOR Hubbard Jr. LAB BLOOD ORDERABLES Final Result RASH[address] [address] * Iron level (08/30/2024 5:57 PM HOIST WORKER) [facility] Iron 53 35 - 145 mcg/dL Comment:Testing performed by : [address] [address] Blood 08/30/2024 5:57 PM HOIST WORKER 08/30/2024 6:12 PM HOIST WORKER us IGOR Hubbard Jr. LAB BLOOD ORDERABLES Final Result Performing Organization Address [facility] Co de Phone Number [address] [address] * Vitamin B12 (08/30/2024 5:57 PM HOIST WORKER) [facility] Vitamin B12 775 230 - 1,250 pg/mL Comment:Testing performed by : [facility], [address] [place] [address]., [address] Blood 08/30/2024 5:57 PM HOIST WORKER 08/30/2024 6:12 PM HOIST WORKER us IGOR Hubbard Jr. LAB BLOOD ORDERABLES Final Result Performing Organization Address [facility] Co de Phone Number [address] [address] * Comprehensive metabolic panel (08/30/2024 5:57 PM HOIST WORKER) [facility] Sodium 141 135 - 145 mmol/L Comment:Testing performed by : [address] [address] Potassium, pl 4.2 3.3 - 4.9 mmol/L DENISE CALDERON Comment:Testing performed by : [address] [address] Chloride 101 97 - 110 mmol/L DENISE Comment:Testing performed by : [address] [address] CO2 30 22 - 32 mmol/L DENISE CALDERON Comment:Testing performed by : [address] [address] Anion gap 10 2 - 15 mmol/L DENISE Comment:Testing performed by : [address] [address] BUN 16 6 - 25 mg/dL DENISE Comment:Testing performed by : [address] [address] Creatinine 0.87 0.60 - 1.10 mg/dL DENISE Comment:Testing performed by : [address] [address] Glucose 95 70 - 199 mg/dL DENISE Comment: Interpretive Data Fasting glucose >/= 126 mg/dl is diagnostic for diabetes. Fasting is defined as no caloric intake for at least 8 hours. Fasting glucose between 100 mg/dl to 125 mg/dl is diagnostic of prediabetes. In a patient with classic symptoms of hyperglycemia or hyperglycemic crisis, a random glucose >/= 200 mg/dl is diagnostic for diabetes. In the absence of unequivocal hyperglycemia, results should be confirmed by repeat testing. The classification and Diagnosis of Diabetes Diabetes Care 202; 46: S19-S40. Current interpretive data was last revised 2022. Testing performed by: [address] [address] Calcium 9.6 8.5 - 10.3 mg/dL DENISE Comment:Testing performed by : [address] [address] Bilirubin, total 0.3 0.1 - 1.2 mg/dL DENISE Comment:Testing performed by : [address] [address] Protein, pl 7.4 6.5 - 8.5 g/dL DENISE Comment:Testing performed by : [address] [address] Albumin 4.4 3.5 - 5.0 g/dL DENISE Comment:Testing performed by : [address] [address] Alk phos 69 40 - 130 Units/L DENISE Comment:Testing performed by : [address] [address] ALT 24 7 - 45 Units/L DENISE Comment:Testing performed by : [address] [address] AST 25 10 - 45 Units/L DENISE Comment:Testing performed by : [address] [address] Blood 08/30/2024 5:57 PM HOIST WORKER 08/30/2024 6:12 PM HOIST WORKER IGOR Hubbard Jr. LAB BLOOD ORDERABLES Final Result DENISE [address] [facility] [place] [address] * POC Influenza A/B, COVID-19 antigen (08/30/2024 4:06 PM HOIST WORKER) Influenza A Ag, POC Negative Negative Influenza B Ag, POC Negative Negative COVID-19 Ag POC Presumptive Negative Presumptive Negative, Invalid Nasal 08/30/2024 4:06 PM HOIST WORKER IGOR Hubbard Jr. POINT OF CARE TEST OR DERABLES Final Result * Colonoscopy (02/28/2021) Anatomical Region Laterality Modality Other Historical Provider ENDOSCOPY PROCEDURES Gauri l Result * Screening [...] Alvarado M.D. MD: 11:39 AM 11:39 AM [facility] [EOD] Narrative 04/10/2014 11:42 AM CDT [...] Alvarado M.D. : 11:39 AM 11:39 AM [facility] [EOD] us Sebatsien Hardy MD IMG MAMMO PROCEDURES Final Result from Last 3 Months or Most Recently Relevant to Health Maintenance Insurance [facility] PL[facility] PL[facility] Care Teams Library Services Coordinator Relationship Specialty Start Date End Date Charles Pascal Jr., PA [address] [place] [id number] PCP - General Family Medicine 04/03/22
--- OUTSIDE RECORDS SUMMARY | 2024-10-27 01:52 | XMS_ITS | Encounter Summary ---
Author Organization [facility] Facility Care Team Providers Care Shoe Parts Molder Name Role Phone IGOR Pascal Jr., Charles Terrazas Primary Care Provide r Encounter Details Date Type Department Care Team (Latest Contact Info) Description 09/14/2015 Orders Only [facility] Provider, MD Simona [address] [place] [id number] Social History Tobacco Use Types Packs/Day Years Used Date Smoking Tobacco: Never Assessed Comments Unknown Sex and Gender Information Value Date Recorded Sex Assigned at Not on file Legal Sex Female 5:38 PM LINING FINISHER Gender Identity Not on file Sexual Orientation [...] COVID: Suspected 08/30/2024 08/30/2024 08/30/2024 4:07 PM LINING FINISHER documented as of this encounter Care Teams Shoe Parts Molder Relationship Specialty Start Date End Date Charles Pascal Jr., PA [address] [place] [id number] PCP - General Family Medicine 04/03/22 documented as of this encounter
--- OUTSIDE RECORDS SUMMARY | 2024-10-27 01:53 | XMS_ITS | Encounter Summary ---
Author Organization [facility] Address [address] [place] [address] Care Team Providers Care Hairspring Studder Name Role Phone Charles Pascal Primary Care Provider [phone] Charles Pascal Unavailable [phone] Encounter Details Date Type Department Care Team (Late st Contact Info) Description 01/08/2024 [employer] Message Enc [facility] [employer] [place], [place] [phone] [place], [facility] Provider Full proxy access Social History Tobacco Use Types Packs/Day Years Used Date Smoking Tobacco: Never Smokeless Tobacco: Never Comments:non smoker Alcohol Use Standard Drinks/Week Comments Yes 0 (1 standard drink = 0.6 oz pur e alcohol) socially Comments No Sex and Gender Information Value Date Recorded Sex Assigned at Female 08/30/2024 8:07 AM ASSOCIATE PROFESSOR OF BIOSTATISTICS Legal Sex Female 6:19 PM CDT Gender Identity Not on file Sexual Orientation Not on file documented as of this encounter Plan of Treatment Not on file documented as of this encounter Visit Diagnoses Not on filedocumented in this encounter Care Teams Hairspring Studder Relationship Specialty Start Date End Date Charles Pascal PA [address] [place] [id number] PCP - General PHYSICIAN BATTERY MECHANIC 06/17/21 Charles Pascal PA [address] [place] [id number] PHYSICIAN BATTERY MECHANIC 06/17/21 documented as of this encounter
--- OUTSIDE RECORDS SUMMARY | 2024-10-27 01:53 | XMS_ITS | Referral Summary ---
Author Organization [facility] Address [address] [facility] [address] [place] [address] Phone Care Team Providers Care Track Leader Name Role Phone IGOR Pascal Jr., Charles Terrazas [facility] Provide r Encounters Date Type Department Care Team Description 08/31/2024 Orders Only [facility] [address] [place] [phone] Charles Pascal Jr., PA 08/31/2024 Telephone [facility] [address] [place] [address] [place] [phone] Charles Pascal Jr., PA Test Results 08/30/2024 5:45 PM BONDERITE OPERATOR Lab [facility] [address] [place], [place] [id number] Fatigue, unspecified type; Fever, unspecified fever cause 08/30/2024 Documentation [facility] Care [address] [place] [address] Yandy Dave MD 08/30/2024 Telephone [facility] [address] [place] [phone] Charles Pascal Jr. PA After Hours 08/30/2024 4:00 PM BONDERITE OPERATOR Office Visit [facility] [address] [place] [address] [address] [place] [phone] Charles Pascal Jr., PA Fatigue, unspecified type (Primary Dx); Fever, unspecified fever cause 08/30/2024 Nurse Triage [facility] [address] [place] [address] [address] [place] [phone] Charles Pascal Jr., PA from Last 3 Months Allergies Active Allergy Reactions Criticality Noted Date Comments Penicillins Other (See comments),Unknown Low 2016 INFANT Medications multivitamin with minerals capsule Take by mouth hims clerk before breakfast Active ferrous sulfate 325 mg [...] on file Legal Sex Female 5:38 PM BONDERITE OPERATOR Gender Identity Not on file Sexual Orientation Not on file Last Filed Vital Signs Vital Sign Reading Time Taken Comments Blood Pressure 116/70 08/30/2024 3:43 PM BONDERITE OPERATOR Pulse 71 08/30/2024 3:43 PM BONDERITE OPERATOR Temperature 36.6 C (97.9 F) 08/30/2024 3:43 PM BONDERITE OPERATOR Respiratory Rate 16 08/30/2024 3:43 PM BONDERITE OPERATOR Oxygen Saturation 97% 08/30/2024 3:43 PM BONDERITE OPERATOR Inhaled Oxygen Concentration - - Weight 56.2 kg (124 lb) 08/30/2024 3:43 PM BONDERITE OPERATOR Height 171.5 cm (5' 7.5 ) 08/30/2024 3:43 PM BONDERITE OPERATOR Body Mass Index 19.13 08/30/2024 3:43 PM BONDERITE OPERATOR Plan of Treatment Not on file Procedures Procedure Name Priority Date/Time Associated Diagnosis Comments EGFR Routine 08/30/2024 5:57 PM BONDERITE OPERATOR Fatigue, unspecified type Fever, unspecified fever cause DIFFERENTIAL AUTO Routine 08/30/2024 5:5 7 PM BONDERITE OPERATOR Fatigue, unspecified type Fever, unspecified fever cause CBC WITH AUTO DIFFERENTIAL Routine 08/30/2024 5:57 PM BONDERITE OPERATOR Fatigue, unspecified type Fever, unspecified fever cause COMPREHENSIVE METABOLIC PANEL Routine 08/30/2024 5:57 PM BONDERITE OPERATOR Fatigue, unspecified type Fever, unspecified fever cause TSH Routine 08/30/2024 5:57 PM BONDERITE OPERATOR Fatigue, unspecified type Fever, unspecified fever cause IRON Routine 08/30/2024 5:57 PM BONDERITE OPERATOR Fatigue, unspecified type Fever, unspecified fever cause VITAMIN B12 Routine 08/30/2024 5:57 PM BONDERITE OPERATOR Fatigue, unspecified type Fever, unspecified fever cause MONONUCLEOSIS SCREEN Routine 08/30/2024 5:57 PM BONDERITE OPERATOR Fatigue, unspecified type Fever, unspecified fever cause POC INFLUENZA A/B, COVID-19 ANTIGEN Routine 08/30/2024 4:06 PM BONDERITE OPERATOR Fatigue, unspecified type Fever, unspecified fever cause COLONOSCOPY Routine 02/28/2021 SCREENING MAMMOGRAM 2D BILATERAL Routine 04/10/2014 10:45 AM CDT from Last 3 Months or Most Recently Relevant to Health Maintenance Results * eGFR (08/30/2024 5:57 PM BONDERITE OPERATOR) eGFR 76 >=60 mL/min/1. 73 m2 Comment: [...] was last reviewed 2021. Testing performed by: [address] [address] Blood 08/30/2024 5:57 PM BONDERITE OPERATOR 08/30/2024 6:12 PM BONDERITE OPERATOR us IGOR Hubbard Jr. LAB BLOOD ORDERABLES Final Result [facility] [address] [facility] Department [place] [address] * Differential, auto (08/30/2024 5:57 PM BONDERITE OPERATOR) Neutrophil abs 3.8 1.5 - 6.5 K/cumm Comment:Testing performed by : [address] [address] Imm gran abs 0.0 0.0 - 0.1 K/cumm DENISE Comment:Testing performed by : [address] [address] Lymphocyte abs 2.2 0.8 - 3.3 K/cumm DENISE Comment:Testing performed by : [address] [address] Monocyte abs 0.5 0.2 - 0.8 K/cumm DENISE Comment:Testing performed by : [address] [address] Eosinophil abs 0.2 0.0 - 0.5 K/cumm DENISE Comment:Testing performed by : [address] [address] Basophil abs 0.1 0.0 - 0.1 K/cumm [facility] Comment:Testing performed by : [address] [address] Neutrophil pct 56.2 % [facility] Comment: Interpretive Data Percent cell count reference ranges are not reported, since discordance with absolute values may lead to misinterpretation of CBC data. Current Interpretive Data was last revised on 2017. Testing performed by: [address] [address] Imm gran pct 0.1 % [facility] Comment: Interpretive Data Percent cell count reference ranges are not reported, since discordance with absolute values may lead to misinterpretation of CBC data. Current Interpretive Data was last revised on 2017. Testing performed by: [address] [address] Lymphocyte pct 33.2 % [facility] Comment: Interpretive Data Percent cell count reference ranges are not reported, since discordance with absolute values may lead to misinterpretation of CBC data. Current Interpretive Data was last revised on 2017. Testing performed by: [address] [address] Monocyte pct 7.3 % [facility] Comment: Interpretive Data Percent cell count reference ranges are not reported, since discordance with absolute values may lead to misinterpretation of CBC data. Current Interpretive Data was last revised on 2017. Testing performed by: [address] [address] Eosinophil pct 2.5 % [facility] Comment: Interpretive Data Percent cell count reference ranges are not reported, since discordance with absolute values may lead to misinterpretation of CBC data. Current Interpretive Data was last revised on 2017. Testing performed by: [address] [address] Basophil pct 0.7 % [facility]ISE CAL[facility]ON Comment: Interpretive Data Percent cell count reference ranges are not reported, since discordance with absolute values may lead to misinterpretation of CBC data. Current Interpretive Data was last revised on 2017. Testing performed by: [address] [address] Blood 08/30/2024 5:57 PM BONDERITE OPERATOR 08/30/2024 6:12 PM BONDERITE OPERATOR us IGOR Hubbard Jr. LAB BLOOD ORDERABLES Final Result [facility] Department [place] [address] * CBC with auto differential (08/30/2024 5:57 PM BONDERITE OPERATOR) Pathologist [facility] WBC 6.7 3.8 - 9.9 K/cumm Comment:Testing performed by : [address] [address] Hgb 14.2 11.9 - 15.5 g/dL DENISE CALDERON Comment:Testing performed by : [address] [address] Hct 41.4 35.6 - 45.5 % [facility]ISE CALDERON Comment:Testing performed by : [address] [address] Plt 312 150 - 400 K/cumm DENISE CALDERON Comment:Testing performed by : [address] [address] MPV 9.5 9.1 - 12.3 fL DENISE CALDERON Comment:Testing performed by : [address] [address] RBC 4.73 3.90 - 5.20 M/cumm DENISE CALDERON Comment:Testing performed by : [address] [address] MCV 87.5 81.3 - 96.4 fL DENISE CALDERON Comment:Testing performed by : [address] [address] MCH 30.0 27.1 - 33.3 pg DENISE CALDERON Comment:Testing performed by : [address] [address] MCHC 34.3 32.3 - 35.7 g/dL DENISE CALDERON Comment:Testing performed by : [address] [address] RDW CV 11.9 11.1 - 14.9 % DENISE Comment:Testing performed by : [address] [address] RDW SD 38.2 35.7 - 48.1 fL DENISE Comment:Testing performed by : [address] [address] NRBC abs 0.00 0.00 - 0.01 K/cumm DENISE Comment:Testing performed by : [address] [address] Blood 08/30/2024 5:57 PM BONDERITE OPERATOR 08/30/2024 6:12 PM BONDERITE OPERATOR us IGOR Hubbard Jr. LAB BLOOD ORDERABLES Final Result DENISE [address] [facility] Department [place] [address] * Mononucleosis screen (08/30/2024 5:57 PM BONDERITE OPERATOR) [facility] [place] Screen Negative Negative Comment: Interpretive Data Heterophile [...] last revised on 2022. Testing performed by: [address] [address] Blood 08/30/2024 5:57 PM BONDERITE OPERATOR 08/30/2024 6:12 PM BONDERITE OPERATOR IGOR Hubbard Jr. LAB BLOOD ORDERABLES Final Result Performing Organization Address [facility] Co de Phone Number DENISE [address] [address] * TSH (08/30/2024 5:57 PM BONDERITE OPERATOR) Thyroid Stimulating Hormone 3.42 0.30 - 4.20 mcIUnit/mL Comment:Testing performed by : [address] [address] Blood 08/30/2024 5:57 PM BONDERITE OPERATOR 08/30/2024 6:12 PM BONDERITE OPERATOR IGOR Hubbard Jr. LAB BLOOD ORDERABLES Final Result Performing Organization Address [facility] de Phone Number [address] [address] * Iron level (08/30/2024 5:57 PM BONDERITE OPERATOR) Iron 53 35 - 145 mcg/dL Comment:Testing performed by : [address] [address] Blood 08/30/2024 5:57 PM BONDERITE OPERATOR 08/30/2024 6:12 PM BONDERITE OPERATOR IGOR Hubbard Jr. LAB BLOOD ORDERABLES Final Result Performing Organization Address [facility] Co de Phone Number [address] [address] * Vitamin B12 (08/30/2024 5:57 PM BONDERITE OPERATOR) Vitamin B12 775 230 - 1,250 pg/mL Comment:Testing performed by : [address] [address] Blood 08/30/2024 5:57 PM BONDERITE OPERATOR 08/30/2024 6:12 PM BONDERITE OPERATOR us IGOR Hubbard Jr. LAB BLOOD ORDERABLES Final Result DENISE [address] [facility] Department [place] [address] * Comprehensive metabolic panel (08/30/2024 5:57 PM BONDERITE OPERATOR) Sodium 141 135 - 145 mmol/L Comment:Testing performed by : [address] [address] Potassium, pl 4.2 3.3 - 4.9 mmol/L DENISE Comment:Testing performed by : [address] [address] Chloride 101 97 - 110 mmol/L DENISE Comment:Testing performed by : [address] [address] CO2 30 22 - 32 mmol/L DENISE Comment:Testing performed by : [address] [address] Anion gap 10 2 - 15 mmol/L DENISE Comment:Testing performed by : [address] [address] BUN 16 6 - 25 mg/dL DENISE Comment:Testing performed by : [address] [address] Creatinine 0.87 0.60 - 1.10 mg/dL DENISE Comment:Testing performed by : [address] [address] Glucose 95 70 - 199 mg/dL DENISE [...] classification and Diagnosis of Diabetes Diabetes Care 2021; 46: S19-S40. Current interpretive data was last revised 2022. Testing performed by: [address] [address] Calcium 9.6 8.5 - 10.3 mg/dL DENISE Comment:Testing performed by : [address] [address] Bilirubin, total 0.3 0.1 - 1.2 mg/dL DENISE Comment:Testing performed by : [address] [address] Protein, pl 7.4 6.5 - 8.5 g/dL DENISE Comment:Testing performed by : [address] [address] Albumin 4.4 3.5 - 5.0 g/dL DENISE Comment:Testing performed by : [address] [address] Alk phos 69 40 - 130 Units/L DENISE Comment:Testing performed by : [address] [address] ALT 24 7 - 45 Units/L DENISE Comment:Testing performed by : [address] [address] AST 25 10 - 45 Units/L [facility] Comment:Testing performed by : [address] [address] Blood 08/30/2024 5:57 PM BONDERITE OPERATOR 08/30/2024 6:12 PM BONDERITE OPERATOR IGOR Hubbard Jr. LAB BLOOD ORDERABLES Final Result Performing Organization Address City/State/[facility] Co de Phone Number DENISE [address] [facility] Department [place] [address] * POC Influenza A/B, COVID-19 antigen (08/30/2024 4:06 PM BONDERITE OPERATOR) Influenza A Ag, POC Negative Negative Influenza B Ag, POC Negative Negative COVID-19 Ag POC Presumptive Negative Presumptive Negative, Invalid Nasal 08/30/2024 4:06 PM BONDERITE OPERATOR us IGOR Hubbard Jr. POINT OF CARE TEST OR DERABLES Final Result * Colonoscopy (02/28/2021) Anatomical Region Laterality Modality Other us Historical Provider ENDOSCOPY PROCEDURES Gauri calhoun Result * Screening Mammogram 2D Bilateral (04/10/2014 [...] Alvarado M.D. MD: 11:39 AM 11:39 AM [facility] [EOD] Narrative 04/10/2014 11:42 AM CDT [...] to the prior studies. Procedure Note Provider, Simona, - 11/13/2020 EXAMINATION: Bilateral screening mammography HISTORY: [...] Alvarado M.D. MD: 11:39 AM 11:39 AM [facility] [EOD] Sebastien Hardy MD IMG MAMMO PROCEDURES Final Result from Last 3 Months or Most Recently Relevant to Health Maintenance Insurance [place], [place] [id number] [address] CHOICE PLUS [facility] HMO/PPO Address: [facility] [address] [place] [address] [facility] CHOICE PLUS [facility] HMO/PPO Address: [facility] [id number] [place] [address] Care Teams Track Leader Relationship Specialty Start Date End Date Charles Pascal Jr., PA [address] [place] [id number] PCP - General Family Medicine 04/03/22
--- OUTSIDE RECORDS SUMMARY | 2024-10-27 01:53 | XMS_ITS | Clinical Summary ---
Author Organization [facility] Address [address] [place] [address] Care Team Providers Care Research Associate Molecular Biology Name Role Phone Charles Pascal Primary Care Provider [phone] Charles Pascal Unavailable Allergies Active Allergy Reactions Criticality Noted Date Comments Penicillin V Unknown 06/14/2021 Penicillins Unknown 01/22/2017 Medications No known medications Active Problems No known active problems Encounters Date Type Department Care Team Description 08/30/2024 8:15 AM SPRING ASSEMBLER SUPERVISOR - 08/30/2024 9:24 AM SPRING ASSEMBLER SUPERVISOR Hospital Encounter [facility] [address] [place] [address] Rowena Nieto DO Vertigo- Recurrent Discharge Disposition: Home or Self Care (Routine Discharge) 08/30/2024 Travel from Last 3 Months Family History [...] Sex Assigned at Female 08/30/2024 8:07 AM SPRING ASSEMBLER SUPERVISOR Legal Sex Female 6:19 PM CDT Gender Identity Not on file Sexual Orientation Not on file Last Filed Vital Signs Vital Sign Reading Time Taken Comments Blood Pressure 110/74 08/30/2024 8:34 AM SPRING ASSEMBLER SUPERVISOR Pulse 78 08/30/2024 8:34 AM SPRING ASSEMBLER SUPERVISOR Temperature 36.1 C (97 F) 08/30/2024 8:16 AM SPRING ASSEMBLER SUPERVISOR Respiratory Rate 20 08/30/2024 8:16 AM SPRING ASSEMBLER SUPERVISOR Oxygen Saturation 99% 08/30/2024 8:16 AM SPRING ASSEMBLER SUPERVISOR Inhaled Oxygen Concentration - - Weight 55.8 kg (123 lb) 08/30/2024 8:16 AM SPRING ASSEMBLER SUPERVISOR Height 170.2 cm (5' 7 ) 08/30/2024 8:16 AM SPRING ASSEMBLER SUPERVISOR Body Mass Index 19.26 08/30/2024 8:16 AM SPRING ASSEMBLER SUPERVISOR Plan of Treatment Health Maintenance Due Date Last Done Comments Cervical Cancer Screening Pap Smear (Age 30 to 64) Every 3 Years 1965 Annual Physical 09/10/1966 Hepatitis C 09/10/1981 DTaP, Tdap and Td Vaccines (1 - Tdap) 09/10/1982 Cervical Cancer Screening Pap with HPV Testing (Age 30 to 64) Every 5 Years 09/10/1993 Cervical Cancer Screening with HPV 09/10/1993 Pneumococcal Vaccine: 50+ Years (1 of 1 - PCV) 09/10/2013 Zoster Vaccines (1 of 2) 09/10/2013 Mammogram Screening 04/10/2016 04/10/2014, 3 COVID-19 Vaccine (2 - season) 2024 12/31/2020 Colorectal Cancer Screening Colonoscopy (10 Years) 06/18/2031 [...] this topic Medical Devices Implanted Type Area Forest Manager Device Identifier Shelf Expiration Date Model / Serial / Lot Clip Resolution 360 Deg 2.8mm X 235cm - [id number] Implanted:Qty : 1 on 06/18/2021 by Francisco Estrada, DO at [facility] Clip Implant N/A: Abdomen [employer] [id number] 04/08/2024 [id number] 1 / / [id number] Clip Resolution 2.8mm 360 235cm 11mm Open - [id number] Implanted:Qty : 1 on 06/18/2021 by Francisco Estrada, DO at [facility] Clip Implant N/A: Abdomen [employer] [id number] 04/08/2024 [id number] 0 / / [id number] Clip Resolution 2.8mm 360 235cm 11mm Open - [id number] Implanted:Qty : 1 on 06/18/2021 by Francisco Estrada, DO at [facility] Clip Implant N/A: Abdomen [employer] [id number] 02/28/2024 [id number] 0 / / [id number] Procedures Procedure Name Priority Date/Time Associated Diagnosis Comments XR CHEST PA+LAT STAT 08/30/2024 8:50 AM SPRING ASSEMBLER SUPERVISOR ECG 12-LEAD STAT 08/30/2024 8:40 AM SPRING ASSEMBLER SUPERVISOR POCT GLUCOSE - WILLSON DOCKED DEVICE Routine 08/30/2024 8:38 AM SPRING ASSEMBLER SUPERVISOR COLONOSCOPY Routine 06/18/2021 5:26 AM SPRING ASSEMBLER SUPERVISOR from Last 3 Months or Most Recently Relevant to Health Maintenance Results * XR CHEST PA+LAT (08/30/2024 8:50 AM SPRING ASSEMBLER SUPERVISOR) Anatomical Region Laterality Modality Chest Radiographic Liv ging 08/30/2024 8:55 AM SPRING ASSEMBLER SUPERVISOR Impressions 08/30/2024 8:55 AM SPRING ASSEMBLER SUPERVISOR =====IMPRESSION:===== No radiographic evidence of active chest disease. Ordered By: ROWENA NIETO Interpreted By: Angelo Morton MD, 08/30/2024 8:55 AM Narrative 08/30/2024 8:55 AM SPRING ASSEMBLER SUPERVISOR [address] [address] Examination: Chest x-ray 2 view Exam date/time: 08/30/2024 8:34 AM Reason For Exam: productive cough, recent flu like illness Comparison: 2017 PA chest Technique: PA and lateral views of the chest were obtained. Findings: The cardiac silhouette, mediastinal contours, and pulmonary vessels appear normal. The lungs are clear. No pneumothorax. No consolidations or effusions are seen. There is no evidence of bronchial wall thickening or abnormal pulmonary interstitium. Overall, no radiographic evidence of active chest disease. Procedure Note Angelo Morton MD - 08/30/[address] [address] Examination: Chest x-ray 2 view Exam date/time: 08/30/2024 8:34 AM Reason For Exam: productive cough, recent flu like illness Comparison: 2017 PA chest Technique: PA and lateral views of the chest were obtained. Findings: The cardiac silhouette, mediastinal contours, and pulmonaryvessels appear normal. The lungs are clear. No pneumothorax. Noconsolidations or effusions are seen. There is no evidence of bronchialwall thickening or abnormal pulmonary interstitium. Overall, noradiographic evidence of active chest disease. =====IMPRESSION:===== No radiographic evidence of active chest disease. Ordered By: ROWENA NIETO Interpreted By: Angelo Morton MD, 08/30/2024 8:55 AM Rowena Nieto DO GENERAL IMAGING Final Result * ECG 12 lead (08/30/2024 8:40 AM SPRING ASSEMBLER SUPERVISOR) 08/30/2024 8:40 AM SPRING ASSEMBLER SUPERVISOR Narrative [facility] - 08/31/2024 10:32 AM SPRING ASSEMBLER SUPERVISOR [facility] [address] [place] [address] Test Date: 2024-08-30 Pat Name: TAMMIE BRITO Department: 41 Room: [place] [address] Gender: Female Rooming House Inspector: [id number] : 1965 Requested By: ROWENA NIETO Order Number: [id number] Reading MD: Austin Redmond Measurements Intervals [place] Rate: 68 P: 58 CO: 167 QRS: 52 QRSD: 100 T: 42 QT: 385 QTc: 410 Interpretive Statements SINUS RHYTHM INCOMPLETE RIGHT BUNDLE BRANCH BLOCK [90+ ms QRS DURATION, TERMINAL R IN V1/V2, 40+ ms S IN I/aVL/V4/V5/V6] No previous ECG available for comparison NG ASSEMBLER SUPERVISOR Procedure Note Austin Redmond MD - 08/31/2024 [facility] [address] Test Date: 2024-08-30 Pat Name: TAMMIE BRTIO Department: 41 Room: [place] [address] Gender: Female Rooming House Inspector: [id number] : 1965 Requested By: ROWENA NIETO Order Number: [id number] Reading EUSEBIO Redmond Measurements Intervals [place] Rate: 68 P: 58 CO: 167 QRS: 52 QRSD: 100 T: 42 QT: 385 QTc: 410 Interpretive Statements SINUS RHYTHM INCOMPLETE RIGHT BUNDLE BRANCH BLOCK [90+ ms QRS DURATION, TERMINAL RIN V1/V2, 40+ ms S IN I/aVL/V4/V5/V6] No previous ECG available for comparison NG ASSEMBLER SUPERVISOR us Rowena Nieto DO ECG ORDERABLES Final Result [facility] * POCT glucose (08/30/2024 8:38 AM SPRING ASSEMBLER SUPERVISOR) GLUCOSE POC 89 70 - 99 mg/dL 08/30/2024 8:43 AM SPRING ASSEMBLER SUPERVISOR [facility] 08/30/2024 8:38 AM SPRING ASSEMBLER SUPERVISOR us Rowena Nieto DO POCT ORDERABLES - DEVICE Gauri l Result [facility] [address] [place] [address], [place] [phone] from Last 3 Months Insurance Member Subscriber Plan / Payer (Ef fective 2020-Present) Name:Tammie Brito Relation to Subscriber:Spouse Name:JAD BRITO Date of :1962 (Home) Address: [address] [place] [address] Payer ID:[id number] (NAIC) Type:Not on file Address: [address] [employer] Care Teams Research Associate Molecular Biology Relationship Specialty Start Date End Date Charles Pascal PA [facility] [address] [place] [address] PCP - General [facility] [employer] 06/17/21 Charles Pascal PA [address] [place] [address] [address] [place] [address] [facility] 06/17/21
--- OUTSIDE RECORDS SUMMARY | 2024-10-27 01:53 | XMS_ITS | Clinical Summary ---
Author Organization [facility] Address [address] [place] [phone] Care Team Providers Care Oil Analyst Name Role Phone Unavailable Primary Care Provider Unavailabl e Social History Tobacco Use Types Packs/Day Years Used Date Smoking Tobacco: Never Assessed Comments Unknown Sex and Gender Information Value Date Recorded Sex Assigned at Not on file Legal Sex Female 8:08 AM ACADEMIC MANAGER Gender Identity Not on file Sexual Orientation [...]
--- OUTSIDE RECORDS SUMMARY | 2024-10-27 01:53 | XMS_ITS | Encounter Summary ---
Author Organization [facility] Address [address] [place] [address] Care Team Providers Care Supervisor Solder Making Name Role Phone Alber CORDOVA MD, Mk Marie Primary Care Provider Encounter Details Date Type Department Care Team (Late st Contact Info) Description 11/05/[address] [facility] Care DermPath Lab [address] [facility], [place] [id number] Nu Borrero MD [address] [place] [phone] Social History Tobacco Use Types Packs/Day [...] AM CDT) Case Report Dermatopathology Report Case: [id number] Authorizing Provider: Nu Borrero MD Collected: 11/03/2017 [...] right foot. The specimen consists of a [id number] excision of skin. The margin is inked green. The specimen is bisected lengthwise and submitted in 1 cassette. Jar 0. 3:26 PM T DERMATOPATHOLOGY LABORATORY Gross Description Received is one formalin filled container labeled with the patients name and designated right foot. The specimen consists of a [id number] excision of skin. The margin is inked [...] characteristic determined by the Dermatopathology Laboratory at [facility]. These tests need not be, and therefore are not, approved by the [place] Food and Drug Administration. The tests are used for clinical purposes. Billing Codes Specimen Charges Stain Charges 76209 1 3:26 PM CDT DERMATOPATHOLOGY LABORATORY Embedded Images 3:26 PM CDT DERMATOPATHOLOGY LABORATORY Pathology/Cytolog y TISSUE SPECIMEN FROM SKIN / Unknown 11/03/2017 11/05/2017 6:49 AM CDT Nu Borrero MD LAB - PATHOLOGY/CYTOLOGY ORDERABLES Final Result DERMATOPATHOLOGY LABORATORY [facility] - Department of Dermatology [address] [place] [address], 5th [place] [address], [facility] [phone] documented in this encounter Visit Diagnoses Not on filedocumented in this encounter Care Teams Supervisor Solder Making Relationship Specialty Start Date End Date Mk Campo III, MD [address] [address] PCP - General Internal Medicine 01/22/17 documented as of this encounter
[2024-10-27 07:51] VITALS: BP 103/62; PULSE 60; RESP 18; TEMP 36.6; O2SAT 99
[2024-10-27] MEDS: LACTATED RINGERS 1,000 ML 150 ML IV CONT (07:59)
--- NOTE | 2024-10-27 08:56 | PM.IMHP ---
H&P: HPI History of Present Illness Date/Time: 10/27/24 08:56 Chief Complaint: History of colon polyps Narrative: The patient has a history of colonic polyps, the last colonoscopy was 3 years ago. Review of Systems Review of Systems: All systems reviewed & are unremarkable except as noted in HPI and below PMFSH Past Medical History Medical History (Updated 10/27/24 @ 08:56 by Elie Avendano MD) Hyperlipidemia Surgical History Surgical History (Updated 10/26/24 @ 14:11 by Brad Paige DO) History of Social History Social History Smoking status: Never smoker Alcohol intake: never Substance use: never Substance use type: does not use Living arrangements: with family Spiritual care concerns: No Meds Home Medications and Allergies Home Medications ?Medication ?Instructions ?Recorded ?Confirmed ?Type calcium 250 mg tablet 250 mg PO DAILY 10/14/24 10/27/24 History Allergies Allergy/AdvReac Type Severity Reaction Status Date / Time Penicillins Allergy Intermediate Rash Verified 10/27/24 07:50 Vital Signs Vital Signs - 24 hr 10/27/24 07:51 Temperature 98 F Pulse Rate 60 Respiratory Rate 18 Blood Pressure 103/62 Pulse Oximetry 99 Oxygen Delivery Room Air Exam Const: General: cooperative and healthy appearing Resp: Effort & Inspection: normal respiratory effort and able to speak in complete sentences Auscultation: clear to auscultation bilaterally Cardio: Rate: regular rate Rhythm: regular rhythm GI: Inspection: normal to inspection GI Palp: No No hepatosplenomegaly present Auscultation: normal bowel sounds Rectal Exam: deferred Skin: General skin exam: normal color Psych: Appearance: grossly normal Mental Status: mental status grossly normal Assessment and Plan Assessment and plan (1) History of colonic polyps: Code(s): Z86.0100 - Personal history of colon polyps, unspecified Status: Acute Assessment and Plan: The patient is deemed a good candidate for the procedure. Consent signed. Will proceed.
[2024-10-27] MEDS: SIMETHICONE ORAL SUSPENSION 20 MG/0.3 ML 30 ML BOTTLE 0.6 ML IRRIGATION (09:12)
[2024-10-27 09:23] VITALS: BP 92/60; PULSE 65; RESP 19; O2SAT 99
[2024-10-27 09:33] VITALS: BP 102/64; PULSE 64; RESP 20; O2SAT 100
[2024-10-27 09:43] VITALS: BP 96/70; PULSE 61; RESP 17; O2SAT 100
== END 2024-10-27 09:58 | disposition home or self-care (01) ==
PROVIDERS: PCP Physician Assistant; Referring Provider Nurse Practitioner; Visit Provider Internal Medicine Gastroenterology
PROC: 0DJD8ZZ Inspection of Lower Intestinal Tract, Via Natural or Artificial Opening Endoscopic (ICD-10-PCS; CPT 45378; principal; 2024-10-27 09:00)
DX: Z12.11 Encounter for screening for malignant neoplasm of colon (principal); E78.5 Hyperlipidemia, unspecified; Z98.890 Other specified postprocedural states; Z86.0100 Personal history of colon polyps, unspecified
CPT/HCPCS: 45378; J2003; J2704; J7120

== ENCOUNTER 2025-01-05 07:40 | Outpatient (CLI) | payer OTHER, SELFPAY ==
--- NOTE | ~2025-01-05 | MM_ITS ---
EXAMINATION: MM screening [facility] BI w jackson HISTORY: Screening mammogram TECHNIQUE: Craniocaudal and mediolateral oblique 3-D tomosynthesis images were obtained and synthetic 2-D images were generated. CAD analysis was submitted and interpreted. COMPARISON: 07/29/2023, 04/22/2022, 11/09/2020 BREAST PARENCHYMAL COMPOSITION:Not Dense. There are scattered areas of fibroglandular density. FINDINGS: No suspicious mass, calcification, or architectural distortion are identified in either sanjuana ast to suggest malignancy. There has been no suspicious interval change. IMPRESSION: No mammographic evidence of malignancy. Recommend routine screening mammography in one year. BI-RADS Category 1: Negative Reviewed, dictated and finalized at location .
--- OUTSIDE RECORDS SUMMARY | 2025-01-05 07:44 | XMS_ITS | Encounter Summary ---
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
--- OUTSIDE RECORDS SUMMARY | 2025-01-05 07:44 | XMS_ITS | Encounter Summary ---
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
--- OUTSIDE RECORDS SUMMARY | 2025-01-05 07:44 | XMS_ITS | Encounter Summary ---
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
--- OUTSIDE RECORDS SUMMARY | 2025-01-05 07:44 | XMS_ITS | Encounter Summary ---
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
--- OUTSIDE RECORDS SUMMARY | 2025-01-05 07:45 | XMS_ITS | Referral Summary ---
Author Organization [facility] Address [address] [place] [address] Phone Care Team Providers Care Senior Integration Architect Name Role Phone IGOR Pascal Jr., Charles Terrazas Primary Care Provide r Encounters Date Type Department Care Team Description 12/27/2024 10:48 AM CDT - 12/27/2024 11:59 PM CDT Hospital Encounter [facility] [address] [place] [id number] Neck pain; Thoracic spine pain; Right shoulder pain, unspecified chronicity Discharge Disposition: Discharge to home or self care 12/27/2024 11:00 AM CDT Office Visit [facility] [address] [place] [phone] Wendie Correia NP Chronic neck pain; Neural foraminal stenosis of cervical spine. Left C5-C7, right C6-C7; Arthropathy of cervical facet joint, left > right multilevel; DDD (degenerative disc disease), cervical. Mild C4-C5, severe C5-C6 and moderate C6-C7; Spondylolisthesis of cervical region, Mild anterolisthesis of C4 on C5 and retrolisthesis of C5 on C6; Lumbar pain with radiation down left leg; Neural foraminal stenosis of lumbar spine, multilevel; Thoracic spine pain; Right shoulder pain, unspecified chronicity 11/14/2024 2:40 PM CDT - 11/14/2024 4:51 PM CDT Emergency [facility] Emergency Department [address] [place] [id number] Fall, initial encounter (Primary Dx); Closed head injury, initial encounter; Acute pain of right shoulder Discharge Disposition: Discharge to home or self care from Last 3 Months Allergies Active Allergy Reactions Criticality Noted Date Comments Penicillins Other (See comments),Unknown Low 2016 INFANT Medications multivitamin with minerals capsule 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 7 patch 5 12/28/19 25 Discontinu ed(Patient Reported) Active Problems Problem Noted Date Diagnosed Date Gastroesophageal reflux disease without esophagi tis 04/02/2018 Plantar wart, right foot 11/03/2017 Whiplash 09/06/2015 Immunizations Immunization Administration Dates Next Due Influenza, Unspecified 08/30/2024(Deferr ed: Patient decision),04/30/2023(Deferred: Patient Refused),04/04/2023(Deferred: Patient decision),03/29/2022(Deferred: Patient Refused) Social History Tobacco Use Types Packs/Day Years Used Date Smoking Tobacco: Never Smokeless Tobacco: Never Tobacco Cessation:Counseling Given: Not Answered AUDIT-C Answer Date Recorded Q1: How often do you have a drink containing alc ohol? 2-4 times a month 12/27/2024 Q2: How many drinks containi ng alcohol do you have on a typical day when you are drinking? 1 or 2 12/27/2024 Q3: How often do you have si x or more drinks on one occasion? Never 12/27/2024 PHQ-2 Answer Date Recorded PHQ-2 Total Score (If total score is 3 or more points, staff should administer the PHQ-9) 0 07/12/2024 Personal Safety Answer Date Recorded Have you ever been in or are you currently in a harmful physical or emotional relationship or is someone making you feel afraid or unsafe? Denies 11/14/2024 Comments No Sex and Gender Information Value Date Recorded Sex Assigned at Not on file Legal Sex Female 5:38 PM [employer] Gender Identity Not on file Sexual Orientation Not on file Last Filed Vital Signs Vital Sign Reading Time Taken Comments Blood Pressure 99/69 11/14/2024 4:50 PM CDT Pulse 70 11/14/2024 4:50 PM CDT Temperature 36.7 C (98.1 F) 11/14/2024 1:31 PM CDT Respiratory Rate 14 11/14/2024 4:50 PM CDT Oxygen Saturation 100% 11/14/2024 4:50 PM CDT Inhaled Oxygen Concentration - - Weight 57.2 kg (126 lb) 12/27/2024 11:10 AM CDT Height 171.5 cm (5' 7.5) 12/27/2024 11:10 AM CD T Body Mass Index 19.44 12/27/2024 11:10 AM CDT Plan of Treatment Not on file Procedures Procedure Name Priority Date/Time Associated Diagnosis Comments XR SPINE THORACIC 3 VIEWS Schedule Routine, Read Routine (OP Routine) 12/27/2024 11:00 AM CDT Thoracic spine pain XR SPINE CERVICAL W FLEXION AND EXTENSION 6 OR MORE VIEWS Schedule Routine, Read Routine (OP Routine) 12/27/2024 11:00 AM CDT Neck pain XR SHOULDER RIGHT 2 OR MORE VIEWS ED 11/14/2024 2:[address] HEAD WO CONTRAST ED 11/14/2024 2 :[address] LUMBAR SPINE WO CONTRAST ED 11/14/2024 2:[address] CERVICAL SPINE WO CONTRAST ED 11/14/2024 2:05 PM CDT COLONOSCOPY Routine 10/27/2024 9:38 AM CDT SCREENING MAMMOGRAM 2D BILATERAL Routine 04/10/2014 10:45 AM CDT from Last 3 Months or Most Recently Relevant to Health Maintenance Results * XR Spine Thoracic 3 View (12/27/2024 11:00 AM CDT) Anatomical Region Laterality Modality Spine N/A Computed Radiogr aphy 12/29/2024 3:31 PM CDT Narrative 12/29/2024 3:33 PM CDT EXAM DESCRIPTION: 1. XR SPINE CERVICAL W FLEXION AND EXTENSION 6 OR MORE VIEWS; 2. XR SPINE THORACIC 3 VIEWS REASON FOR STUDY: pain Posterior neck and upper back pain since fall 11-14-24 FINDINGS: 6 views cervical spine and three views thoracic spine submitted with comparison 11/14/2024. Cervical spine: No acute fracture. No prevertebral soft tissue swelling. Mild anterolisthesis of C4 on C5 and retrolisthesis of C5 on C6. Mild C4-C5, severe C5-C6 and moderate C6-C7 degenerative disc disease. Flexion-extension views demonstrate mild exacerbation of the C5 retrolisthesis. Qkmu-itcddbw-yztz-right multilevel cervical facet osteoarthritis. Left-sided C5-C7 and right-sided C6-C7 foraminal impingement. Thoracic spine: No acute fracture. Minimal dextrocurvature of the midthoracic spine and levocurvature of the inferior thoracic spine. The intervertebral disc space heights are normal. IMPRESSION: 1. Mild C4-C5, severe C5-C6 and moderate C6-C7 degenerative disc disease with qhql-lhsgghz-rtkm-right multilevel cervical facet osteoarthritis. 2. Left-sided C5-C7 and right-sided C6-C7 foraminal impingement. 3. Minimal thoracic curvature. THIS IS AN ELECTRONICALLY VERIFIED FINAL REPORT 12/29/2024 3:33 PM - Electronically signed by Sebastián Delong M.D. MF T: Report ID: [id number] Reading Location: [id number] Procedure Note Sebastián Delong MD - 12/29/2024 EXAM DESCRIPTION: 1. XR SPINE CERVICAL W FLEXION AND EXTENSION 6 OR MORE VIEWS; 2. XR SPINE THORACIC 3 VIEWS REASON FOR STUDY: pain Posterior neck and upper back pain since fall 11-14-24 FINDINGS: 6 views cervical spine and three views thoracic spine submittedwith comparison 11/14/2024. Cervical spine: No acute fracture. No prevertebral soft tissue swelling. Mild anterolisthesis of C4 on C5 and retrolisthesis of C5 on C6. Mild C4-C5, severe C5-C6 and moderate C6-C7 degenerative disc disease.Flexion-extension views demonstrate mild exacerbation of the C5 retrolisthesis. Bnaa-ufwcbpu-skoz-right multilevel cervical facet osteoarthritis.Left-sided C5-C7 and right-sided C6-C7 foraminal impingement. Thoracic spine: No acute fracture. Minimal dextrocurvature of the midthoracic spine and levocurvature of the inferior thoracic spine. The intervertebral discspace heights are normal. IMPRESSION: 1. Mild C4-C5, severe C5-C6 and moderate C6-C7 degenerative disc disease with rhtx-ipctuzm-yxmp-right multilevel cervical facet osteoarthritis. 2. Left-sided C5-C7 and right-sided C6-C7 foraminal impingement. 3. Minimal thoracic curvature. THIS IS AN ELECTRONICALLY VERIFIED FINAL REPORT 12/29/2024 3:33 PM - Electronically signed by Sebastián Delong M.D. T: Report ID: [id number] Reading Location: [place] [id number] Wendie Correia THEATER USHER IMG XR PROCEDURES Final Res ult * XR Spine Cervical W Flexion And Extension 6 or More Views (12/27/2024 11:00 AM CDT) Anatomical Region Laterality Modality Spine N/A Computed Radiogr aphy 12/29/2024 3:31 PM CDT Narrative 12/29/2024 3:33 PM CDT EXAM DESCRIPTION: 1. XR SPINE CERVICAL W FLEXION AND EXTENSION 6 OR MORE VIEWS; 2. XR SPINE THORACIC 3 VIEWS REASON FOR STUDY: pain Posterior neck and upper back pain since fall 11-14-24 FINDINGS: 6 views cervical spine and three views thoracic spine submitted with comparison 11/14/2024. Cervical spine: No acute fracture. No prevertebral soft tissue swelling. Mild anterolisthesis of C4 on C5 and retrolisthesis of C5 on C6. Mild C4-C5, severe C5-C6 and moderate C6-C7 degenerative disc disease. Flexion-extension views demonstrate mild exacerbation of the C5 retrolisthesis. Idat-bigrelz-aosu-right multilevel cervical facet osteoarthritis. Left-sided C5-C7 and right-sided C6-C7 foraminal impingement. Thoracic spine: No acute fracture. Minimal dextrocurvature of the midthoracic spine and levocurvature of the inferior thoracic spine. The intervertebral disc space heights are normal. IMPRESSION: 1. Mild C4-C5, severe C5-C6 and moderate C6-C7 degenerative disc disease with sgfg-lqqfmmf-ghct-right multilevel cervical facet osteoarthritis. 2. Left-sided C5-C7 and right-sided C6-C7 foraminal impingement. 3. Minimal thoracic curvature. THIS IS AN ELECTRONICALLY VERIFIED FINAL REPORT 12/29/2024 3:33 PM - Electronically signed by Sebastián Delong M.D. MF T: Report ID: [id number] Reading Location: [id number] Procedure Note Sebastián Delong MD - 12/29/2024 EXAM DESCRIPTION: 1. XR SPINE CERVICAL W FLEXION AND EXTENSION 6 OR MORE VIEWS; 2. XR SPINE THORACIC 3 VIEWS REASON FOR STUDY: pain Posterior neck and upper back pain since fall 11-14-24 FINDINGS: 6 views cervical spine and three views thoracic spine submittedwith comparison 11/14/2024. Cervical spine: No acute fracture. No prevertebral soft tissue swelling. Mild anterolisthesis of C4 on C5 and retrolisthesis of C5 on C6. Mild C4-C5, severe C5-C6 and moderate C6-C7 degenerative disc disease.Flexion-extension views demonstrate mild exacerbation of the C5 retrolisthesis. Yvzw-lhmsawc-ywnl-right multilevel cervical facet osteoarthritis.Left-sided C5-C7 and right-sided C6-C7 foraminal impingement. Thoracic spine: No acute fracture. Minimal dextrocurvature of the midthoracic spine and levocurvature of the inferior thoracic spine. The intervertebral discspace heights are normal. IMPRESSION: 1. Mild C4-C5, severe C5-C6 and moderate C6-C7 degenerative disc disease with qsqn-haniytn-azun-right multilevel cervical facet osteoarthritis. 2. Left-sided C5-C7 and right-sided C6-C7 foraminal impingement. 3. Minimal thoracic curvature. THIS IS AN ELECTRONICALLY VERIFIED FINAL REPORT 12/29/2024 3:33 PM - Electronically signed by Sebastián Delong M.D. T: Report ID: [id number] Reading Location: [id number] us Wendie Correia THEATER USHER IMG XR PROCEDURES Final Res ult * XR Shoulder Right 2 or More Views (11/14/2024 2:08 PM CDT) Anatomical Region Laterality Modality Upper Extremities, Shoulder Right Comp uted Radiography 11/14/2024 3:51 PM CDT Narrative 11/14/2024 3:52 PM CDT EXAM DESCRIPTION: XR SHOULDER RIGHT 2 OR MORE VIEWS REASON FOR STUDY: fall Slipped on slippery rock;feet went out from under, struck the rock on back of head, no LOC, felt stunned, saw an aura, landed on right shoulder, and lower lumbar spine. Pain with difficulty moving right arm up and down, pain in low back sitting, +neck pain - states my head made a whiplash movement C-collar placed in triage maintaining manual C-spine restriction TECHNIQUE: 4 radiographic view(s) of the right shoulder . COMPARISON: None FINDINGS: There is no definite evidence of acute displaced fracture or dislocation involving the right shoulder. There are mild degenerative changes of the right glenohumeral joint with joint space narrowing and minimal sclerosis. There are mild degenerative changes of the of the right acromioclavicular joint with joint space narrowing and mild spurring. The visualized soft tissues are grossly unremarkable. IMPRESSION: Mild degenerative changes of the right shoulder without definite evidence of acute displaced fracture or dislocation. THIS IS AN ELECTRONICALLY VERIFIED FINAL REPORT 11/14/2024 3:52 PM - Electronically signed by Thom Pimentel D.O. PS: PS Report ID: [id number] Reading Location: [id number] Procedure Note Thom Pimentel, - 11/14/2024 EXAM DESCRIPTION: XR SHOULDER RIGHT 2 OR MORE VIEWS REASON FOR STUDY: fall Slipped on slippery rock;feet went out from under, struck the rock on backof head, no LOC, felt stunned, saw an aura, landed on right shoulder, andlower lumbar spine. Pain with difficulty moving right arm up and down, pain inlow back sitting, +neck pain - states my head made a whiplash movement C-collar placed in triage maintaining manual C-spine restriction TECHNIQUE: 4 radiographic view(s) of the right shoulder . COMPARISON: None FINDINGS: There is no definite evidence of acute displaced fracture or dislocation involving the right shoulder. There are mild degenerativechanges of the right glenohumeral joint with joint space narrowing and minimal sclerosis. There are mild degenerative changes of the of the right acromioclavicular joint with joint space narrowing and mild spurring. The visualized soft tissues are grossly unremarkable. IMPRESSION: Mild degenerative changes of the right shoulder without definite evidenceof acute displaced fracture or dislocation. THIS IS AN ELECTRONICALLY VERIFIED FINAL REPORT 11/14/2024 3:52 PM - Electronically signed by Thom Pimentel D.O. PS: PS Report ID: [id number] Reading Location: [id number] us Shyla COSTA IMG XR PROCEDURES Final Result * CT Lumbar Spine WO Contrast (11/14/2024 2:05 PM CDT) Anatomical Region Laterality Modality Spine N/A Computed Tomogra phy 11/14/2024 3:47 PM CDT Narrative 11/14/2024 3:51 PM CDT EXAM DESCRIPTION: CT LUMBAR SPINE WO CONTRAST REASON FOR STUDY: low back pain, fall Slipped on slippery rock;feet went out from under, struck the rock on back of head, no LOC, felt stunned, saw an aura, landed on right shoulder, and lower lumbar spine. Pain with difficulty moving right arm up and down, pain in low back sitting, +neck pain - states my head made a whiplash movement TECHNIQUE: Axial images acquired through the lumbar spine without intravenous contrast. Reconstructed coronal and sagittal MPR images reviewed. All images stored on PACS. Automated exposure control was used as a dose optimization technique for this examination. COMPARISON: None FINDINGS: There is no definite evidence of acute fracture or subluxation involving the lumbar spine. There is a mild dextroscoliotic curvature of the lumbar spine centered at L2. There is minimal retrolisthesis of L2 on L3. There are multilevel degenerative changes lumbar spine with disc space narrowing and endplate osteophytosis. There is vacuum disc phenomenon noted at L4-L5 and L5-S1. There are degenerative changes bilateral sacroiliac joints with joint space narrowing and mild sclerosis. The visualized paravertebral soft tissues are grossly unremarkable. T12-L1: There is a small circumferential disc bulge with mild ligamentum flavum hypertrophy without significant spinal canal stenosis. There is facet arthropathy without significant neural foraminal narrowing. L1-L2: There is a small circumferential disc bulge with mild ligamentum flavum hypertrophy without significant spinal canal stenosis. There is facet arthropathy without significant neural foraminal narrowing. L2-L3: There is minimal retrolisthesis of L2 on L3. There is a circumferential disc bulge with ligamentum flavum hypertrophy causing mass effect on thecal sac with minimal to mild spinal canal stenosis. There is facet arthropathy with mild bilateral neural foraminal narrowing. L3-L4: There is a circumferential disc bulge with ligamentum flavum hypertrophy causing mass effect on thecal sac with mild spinal canal stenosis. There is facet arthropathy with mild right neural foraminal narrowing and mtcl-jv-eicdpcup left neural foraminal narrowing. L4-L5: There is circumferential disc bulge with ligamentum flavum hypertrophy causing mass effect on thecal sac with ugtu-xf-jitscopz spinal canal stenosis. There is facet arthropathy with moderate right neural foraminal narrowing and qbxo-cb-cehofhsk left neural foraminal narrowing. L5-S1: There is a circumferential disc bulge with mild ligamentum flavum hypertrophy without significant spinal canal stenosis. There is mass effect on the bilateral lateral recesses with mild mass effect on the bilateral descending S1 nerve roots. There is facet arthropathy with moderate bilateral neural foraminal narrowing. IMPRESSION: Multilevel lumbar spondylosis as described above without definite evidence of acute fracture or subluxation. THIS IS AN ELECTRONICALLY VERIFIED FINAL REPORT 11/14/2024 3:51 PM - Electronically signed by Thom Pimentel D.O. PS: PS Report ID: [id number] Reading Location: [id number] Procedure Note Loren Thom Nikko DO - 11/14/2024 EXAM DESCRIPTION: CT LUMBAR SPINE WO CONTRAST REASON FOR STUDY: low back pain, fall Slipped on slippery rock;feet went out from under, struck the rock onback of head, no LOC, felt stunned, saw an aura, landed on right shoulder, and lower lumbar spine. Pain with difficulty moving right arm up and down,pain in low back sitting, +neck pain - states my head made a whiplash movement TECHNIQUE: Axial images acquired through the lumbar spine withoutintravenous contrast. Reconstructed coronal and sagittal MPR images reviewed. Allimages stored on PACS. Automated exposure control was used as a dose optimization technique forthis examination. COMPARISON: None FINDINGS: There is no definite evidence of acute fracture or subluxation involving the lumbar spine. There is a mild dextroscoliotic curvature ofthe lumbar spine centered at L2. There is minimal retrolisthesis of L2 on L3. There are multilevel degenerative changes lumbar spine with disc space narrowing and endplate osteophytosis. There is vacuum disc phenomenonnoted at L4-L5 and L5-S1. There are degenerative changes bilateral sacroiliac joints with joint space narrowing and mild sclerosis. The visualized paravertebral soft tissues are grossly unremarkable. T12-L1: There is a small circumferential disc bulge with mild ligamentum flavum hypertrophy without significant spinal canal stenosis. There isfacet arthropathy without significant neural foraminal narrowing. L1-L2: There is a small circumferential disc bulge with mild ligamentumflavum hypertrophy without significant spinal canal stenosis. There is facet arthropathy without significant neural foraminal narrowing. L2-L3: There is minimal retrolisthesis of L2 on L3. There is a circumferential disc bulge with ligamentum flavum hypertrophy causing mass effect on thecal sac with minimal to mild spinal canal stenosis. There is facet arthropathy with mild bilateral neural foraminal narrowing. L3-L4: There is a circumferential disc bulge with ligamentum flavum hypertrophy causing mass effect on thecal sac with mild spinal canalstenosis. There is facet arthropathy with mild right neural foraminal narrowing and svub-cv-afrqdipf left neural foraminal narrowing. L4-L5: There is circumferential disc bulge with ligamentum flavumhypertrophy causing mass effect on thecal sac with fkae-qu-ghysdeko spinal canalstenosis. There is facet arthropathy with moderate right neural foraminal narrowingand hpfb-yi-hknbkiic left neural foraminal narrowing. L5-S1: There is a circumferential disc bulge with mild ligamentum flavum hypertrophy without significant spinal canal stenosis. There is masseffect on the bilateral lateral recesses with mild mass effect on the bilateral descending S1 nerve roots. There is facet arthropathy with moderatebilateral neural foraminal narrowing. IMPRESSION: Multilevel lumbar spondylosis as described above without definiteevidence of acute fracture or subluxation. THIS IS AN ELECTRONICALLY VERIFIED FINAL REPORT 11/14/2024 3:51 PM - Electronically signed by Thom Pimentel D.O. PS: PS Report ID: [id number] Reading Location: [id number] Shyla COSTA IMGuero CT PROCEDURES Final Result * CT Cervical Spine WO Contrast (11/14/2024 2:05 PM CDT) Anatomical Region Laterality Modality Spine N/A Computed Tomogra phy 11/14/2024 3:45 PM CDT Narrative 11/14/2024 3:52 PM CDT EXAM DESCRIPTION: CT HEAD WO CONTRAST; CT CERVICAL SPINE WO CONTRAST REASON FOR STUDY: fall, hit Slipped on slippery rock;feet went out from under, struck the rock on back of head, no LOC, felt stunned, saw an aura, landed on right shoulder, and lower lumbar spine. Pain with difficulty moving right arm up and down, pain in low back sitting, +neck pain - states my head made a whiplash movement ; Neck pain, acute, no red flags Slipped on slippery rock;feet went out from under, struck the rock on back of head, no LOC, felt stunned, saw an aura, landed on right shoulder, and lower lumbar spine. Pain with difficulty moving right arm up and down, pain in low back sitting, +neck pain - states my head made a whiplash movement TECHNIQUE: Axial images acquired through the brain without intravenous contrast. Axial images through the cervical spine with sagittal and coronal reformatted images. Images stored on PACS. Automated exposure control was used as a dose optimization technique for this examination. COMPARISON: None FINDINGS: HEAD BRAIN: No gross intraparenchymal hemorrhage, mass or edema. Mild periventricular white matter hypoattenuation, likely chronic small vessel ischemic disease. No hydrocephalus is seen. EXTRA-AXIAL SPACES: No fluid collections. No masses. CALVARIUM: No fracture. SINUSES/MASTOIDS: No fluid or mucosal thickening. ORBITS: No significant abnormality. CERVICAL SPINE ALIGNMENT: Motion artifact. Mild anterolisthesis of C4-5. Trace retrolisthesis of C5-6 VERTEBRAE: No acute fracture seen. DISCS: Moderate C5-6 and C6-7 degenerative disc disease. Mild degenerative disc disease elsewhere LUNG APICES: Evidence of biapical pleuroparenchymal scarring. NECK SOFT TISSUES: No significant abnormality. OTHER: No other significant findings. IMPRESSION: 1. No gross acute intracranial abnormality. 2. No gross acute osseous abnormality of the cervical spine. THIS IS AN ELECTRONICALLY VERIFIED FINAL REPORT 11/14/2024 3:52 PM - Electronically signed by Navjot Nolen M.D. AG: SIMON Report ID: [id number] Reading Location: [place] [id number] Procedure Note Navjot Nolen MD - 11/14/2024 EXAM DESCRIPTION: CT HEAD WO CONTRAST; CT CERVICAL SPINE WO CONTRAST REASON FOR STUDY: fall, hit Slipped on slippery rock;feet went out from under, struck the rock onback of head, no LOC, felt stunned, saw an aura, landed on right shoulder, and lower lumbar spine. Pain with difficulty moving right arm up and down,pain in low back sitting, +neck pain - states my head made a whiplash movement; Neck pain, acute, no red flags Slipped on slippery rock;feet went out from under, struck the rock onback of head, no LOC, felt stunned, saw an aura, landed on right shoulder, and lower lumbar spine. Pain with difficulty moving right arm up and down,pain in low back sitting, +neck pain - states my head made a whiplash movement TECHNIQUE: Axial images acquired through the brain without intravenous contrast. Axial images through the cervical spine with sagittal andcoronal reformatted images. Images stored on PACS. Automated exposure control was used as a dose optimization technique for this examination. COMPARISON: None FINDINGS: HEAD BRAIN: No gross intraparenchymal hemorrhage, mass or edema. Mild periventricular white matter hypoattenuation, likely chronic small vessel ischemic disease. No hydrocephalus is seen. EXTRA-AXIAL SPACES: No fluid collections. No masses. CALVARIUM: No fracture. SINUSES/MASTOIDS: No fluid or mucosal thickening. ORBITS: No significant abnormality. CERVICAL SPINE ALIGNMENT: Motion artifact. Mild anterolisthesis of C4-5. Trace retrolisthesis of C5-6 VERTEBRAE: No acute fracture seen. DISCS: Moderate C5-6 and C6-7 degenerative disc disease. Milddegenerative disc disease elsewhere LUNG APICES: Evidence of biapical pleuroparenchymal scarring. NECK SOFT TISSUES: No significant abnormality. OTHER: No other significant findings. IMPRESSION: 1. No gross acute intracranial abnormality. 2. No gross acute osseous abnormality of the cervical spine. THIS IS AN ELECTRONICALLY VERIFIED FINAL REPORT 11/14/2024 3:52 PM - Electronically signed by Navjot Nolen M.D. AG: SIMON Report ID: [id number] Reading Location: [id number] Shyla COSTA IMG CT PROCEDURES Final Result * CT Head WO Contrast (11/14/2024 2:05 PM CDT) Anatomical Region Laterality Modality Head and Neck N/A Computed Tomogra phy 11/14/2024 3:45 PM CDT Narrative 11/14/2024 3:52 PM CDT EXAM DESCRIPTION: CT HEAD WO CONTRAST; CT CERVICAL SPINE WO CONTRAST REASON FOR STUDY: fall, hit Slipped on slippery rock;feet went out from under, struck the rock on back of head, no LOC, felt stunned, saw an aura, landed on right shoulder, and lower lumbar spine. Pain with difficulty moving right arm up and down, pain in low back sitting, +neck pain - states my head made a whiplash movement ; Neck pain, acute, no red flags Slipped on slippery rock;feet went out from under, struck the rock on back of head, no LOC, felt stunned, saw an aura, landed on right shoulder, and lower lumbar spine. Pain with difficulty moving right arm up and down, pain in low back sitting, +neck pain - states my head made a whiplash movement TECHNIQUE: Axial images acquired through the brain without intravenous contrast. Axial images through the cervical spine with sagittal and coronal reformatted images. Images stored on PACS. Automated exposure control was used as a dose optimization technique for this examination. COMPARISON: None FINDINGS: HEAD BRAIN: No gross intraparenchymal hemorrhage, mass or edema. Mild periventricular white matter hypoattenuation, likely chronic small vessel ischemic disease. No hydrocephalus is seen. EXTRA-AXIAL SPACES: No fluid collections. No masses. CALVARIUM: No fracture. SINUSES/MASTOIDS: No fluid or mucosal thickening. ORBITS: No significant abnormality. CERVICAL SPINE ALIGNMENT: Motion artifact. Mild anterolisthesis of C4-5. Trace retrolisthesis of C5-6 VERTEBRAE: No acute fracture seen. DISCS: Moderate C5-6 and C6-7 degenerative disc disease. Mild degenerative disc disease elsewhere LUNG APICES: Evidence of biapical pleuroparenchymal scarring. NECK SOFT TISSUES: No significant abnormality. OTHER: No other significant findings. IMPRESSION: 1. No gross acute intracranial abnormality. 2. No gross acute osseous abnormality of the cervical spine. THIS IS AN ELECTRONICALLY VERIFIED FINAL REPORT 11/14/2024 3:52 PM - Electronically signed by Navjot Nolen M.D. AG: SIMON Report ID: [id number] Reading Location: [id number] Procedure Note Navjot Nolen MD - 11/14/2024 EXAM DESCRIPTION: CT HEAD WO CONTRAST; CT CERVICAL SPINE WO CONTRAST REASON FOR STUDY: fall, hit Slipped on slippery rock;feet went out from under, struck the rock onback of head, no LOC, felt stunned, saw an aura, landed on right shoulder, and lower lumbar spine. Pain with difficulty moving right arm up and down,pain in low back sitting, +neck pain - states my head made a whiplash movement; Neck pain, acute, no red flags Slipped on slippery rock;feet went out from under, struck the rock onback of head, no LOC, felt stunned, saw an aura, landed on right shoulder, and lower lumbar spine. Pain with difficulty moving right arm up and down,pain in low back sitting, +neck pain - states my head made a whiplash movement TECHNIQUE: Axial images acquired through the brain without intravenous contrast. Axial images through the cervical spine with sagittal andcoronal reformatted images. Images stored on PACS. Automated exposure control was used as a dose optimization technique for this examination. COMPARISON: None FINDINGS: HEAD BRAIN: No gross intraparenchymal hemorrhage, mass or edema. Mild periventricular white matter hypoattenuation, likely chronic small vessel ischemic disease. No hydrocephalus is seen. EXTRA-AXIAL SPACES: No fluid collections. No masses. CALVARIUM: No fracture. SINUSES/MASTOIDS: No fluid or mucosal thickening. ORBITS: No significant abnormality. CERVICAL SPINE ALIGNMENT: Motion artifact. Mild anterolisthesis of C4-5. Trace retrolisthesis of C5-6 VERTEBRAE: No acute fracture seen. DISCS: Moderate C5-6 and C6-7 degenerative disc disease. Milddegenerative disc disease elsewhere LUNG APICES: Evidence of biapical pleuroparenchymal scarring. NECK SOFT TISSUES: No significant abnormality. OTHER: No other significant findings. IMPRESSION: 1. No gross acute intracranial abnormality. 2. No gross acute osseous abnormality of the cervical spine. THIS IS AN ELECTRONICALLY VERIFIED FINAL REPORT 11/14/2024 3:52 PM - Electronically signed by Navjot Nolen M.D. AG: SIMON Report ID: [id number] Reading Location: [place] [id number] PROCEDURES Final Result * Colonoscopy (10/27/2024 9:38 AM CDT) Anatomical Region Laterality Modality Other Historical Provider [...] Alvarado M.D. MD: 11:39 AM 11:39 AM [facility] [EOD] Narrative 04/10/2014 11:42 AM CDT [...] Alvarado M.D. MD: 11:39 AM 11:39 AM [facility] [EOD] Sebastien Hardy MD IMG MAMMO PROCEDURES Final Result from Last 3 Months or Most Recently Relevant to Health Maintenance Insurance [facility] H[facility]/PPO Address: [facility] [address] [place] [address] [facility] H[facility]/PPO [place]: [place] [address] Care Teams Senior Integration Architect Relationship Specialty Start Date End Date Charles Pascal Jr., PA [address] [place] [phone] PCP - General Family Medicine 04/03/22
--- OUTSIDE RECORDS SUMMARY | 2025-01-05 07:45 | XMS_ITS | Encounter Summary ---
Author Organization [facility] Address [address] [place] [address] Care Team Providers Care Gas Line Installer Supervisor Name Role Phone Alber CORDOVA MD, Mk Marie Primary Care Provider Encounter Details Date Type Department Care Team (Late st Contact Info) Description 11/05/2017 Lab Requisition [facility] Care DermPath Lab [address] [facility] [place] [id number] Nu Borrero MD [address] [place] [phone] Social History Tobacco Use Types Packs/Day [...] AM CDT) Case Report Dermatopathology Report Case: [id number] Authorizing Provider: Nu Borrero MD Collected: 11/03/2017 12:00 AM Pathologist: Chelsy Nur MD Received: 11/05/2017 06:49 AM Specimen: Skin, right foot 3:26 PM CDT DERMATOPATHOLOGY LABORATORY Final Diagnosis Specimen A. SKIN, right foot: VERRUCA VULGARIS (B07.8) PRESENT AT MARGIN 3:26 PM T DERMATOPATHOLOGY LABORATORY at 1526 CDT Clinical History Received is one formalin filled container labeled with the patients name and designated right foot. The specimen consists of a [id number] excision of skin. The margin is inked green. The specimen is bisected lengthwise and submitted in 1 cassette. Jar 0. 3:26 PM CDT DERMATOPATHOLOGY LABORATORY Gross Description Received is one formalin filled container labeled with the patients name and designated right foot. The specimen consists of a [id number] excision of skin. The margin is inked [...] characteristic determined by the Dermatopathology Laboratory at [facility]. These tests need not be, and therefore are not, approved by the [place] Food and Drug Administration. The tests are used for clinical purposes. Billing Codes Specimen Charges Stain Charges 62097 1 3:26 PM CDT DERMATOPATHOLOGY LABORATORY Embedded Images 3:26 PM CDT DERMATOPATHOLOGY LABORATORY Pathology/Cytolog y TISSUE SPECIMEN FROM SKIN / Unknown 11/03/2017 11/05/2017 6:49 AM CDT Nu Borrero MD LAB - PATHOLOGY/CYTOLOGY ORDERABLES Final Result DERMATOPATHOLOGY LABORATORY [facility] - Department of Dermatology [address] [place] [address], [address] [place] [address], [facility] [phone] documented in this encounter Visit Diagnoses Not on filedocumented in this encounter Care Teams Gas Line Installer Supervisor Relationship Specialty Start Date End Date Mk Campo III, MD [address] [address] PCP - General Internal Medicine 01/22/17 documented as of this encounter
--- OUTSIDE RECORDS SUMMARY | 2025-01-05 07:45 | XMS_ITS | Clinical Summary ---
Author Organization [facility] Address [address] [place] [address] Care Team Providers Care Media Marketing Manager Name Role Phone Charles Pascal Primary Care Provider [phone] Charles Pascal Unavailable [phone] Allergies Active Allergy Reactions Criticality Noted Date Comments Penicillin V Unknown 06/14/2021 INFANT Penicillins Unknown 01/22/2017 Medications No known medications Active Problems No known active problems Family History Medical History Relation Comments Cancer [...] Sex Assigned at Female 08/30/2024 8:07 AM STOVE MOUNTER Legal Sex Female 6:19 PM CDT Gender Identity Not on file Sexual Orientation Not on file Last Filed Vital Signs Vital Sign Reading Time Taken Comments Blood Pressure 110/74 08/30/2024 8:34 AM STOVE MOUNTER Pulse 78 08/30/2024 8:34 AM STOVE MOUNTER Temperature 36.1 C (97 F) 08/30/2024 8:16 AM STOVE MOUNTER Respiratory Rate 20 08/30/2024 8:16 AM STOVE MOUNTER Oxygen Saturation 99% 08/30/2024 8:16 AM STOVE MOUNTER Inhaled Oxygen Concentration - - Weight 55.8 kg (123 lb) 08/30/2024 8:16 AM STOVE MOUNTER Height 170.2 cm (5' 7) 08/30/2024 8:16 AM STOVE MOUNTER Body Mass Index 19.26 08/30/2024 8:16 AM STOVE MOUNTER Plan of Treatment Health Maintenance Due Date [...] Mammogram Screening 04/10/2016 04/10/2014, 3 COVID-19 Vaccine ( season) 2024 12/31/2020 Colorectal Cancer Screening Colonoscopy [...] this topic Medical Devices Implanted Type Area Validation Analyst Device Identifier Shelf Expiration Date Model / Serial / Lot Clip Resolution 360 Deg 2.8mm X 235cm - [id number] Implanted:Qty : 1 on 06/18/2021 by Francisco Estrada DO at [facility] Clip Implant N/A: Abdomen [employer] [id number] 04/08/2024 [id number] / / [id number] Clip Resolution 2.8mm 360 235cm 11mm Open - [id number] Implanted:Qty : 1 on 06/18/2021 by Francisco Estrada DO at [facility] Clip Implant N/A: Abdomen [employer] [id number] 04/08/2024 [id number] / / [id number] Clip Resolution 2.8mm 360 235cm 11mm Open - [id number] Implanted:Qty : 1 on 06/18/2021 by Francisco Estrada DO at [facility] Clip Implant N/A: Abdomen [employer] [id number] 02/28/2024 [id number] / / [id number] Procedures Procedure Name Priority Date/Time Associated Diagnosis Comments COLONOSCOPY Routine 06/18/2021 5:26 AM STOVE MOUNTER from Last 3 Months or Most Recently Relevant to Health Maintenance Insurance Member Subscriber Plan / Payer (Ef fective 2020-Present) Name:Tammie Brito Relation to Subscriber:Spouse Name:BALAJI BRITO Date of :1962 (Home) Address: [address] [place] [address] Payer ID:[id number] (NAIC) Type:Not on file Address: [address] Member Subscriber Plan / Payer (Ef fective 2021-Present) Name:Tammie Brito Relation to Subscriber:Spouse Name:BALAJI BRITO Date of :1962 Address: [address] [place] [address] Payer ID:[id number] (NAIC) Type:Not on file Address: [address] Care Teams Media Marketing Manager Relationship Specialty Start Date End Date Charles Pascal PA [facility] [address] [place] [address] PCP - General PHYSICIAN BOARD CERTIFIED FAMILY PHYSICIAN 06/17/21 Charles Pascal PA [address] [place] [address] [address] [place], [place] [id number] PHYSICIAN BOARD CERTIFIED FAMILY PHYSICIAN 06/17/21
--- OUTSIDE RECORDS SUMMARY | 2025-01-05 07:45 | XMS_ITS | Clinical Summary ---
Author Organization [facility] Address [address] [facility] [place] [address] Care Team Providers Care Inspector Outside Steam Distribution Name Role Phone Alber CORDOVA MD, Mk Marie Primary Care Provider Source Comments [facility],non-owned Affiliates and Associated Physician Practices is amultiple site organization consisting of ambulatory clinics and hospital sitesin [place], [place], [place] and [place]. This disclosure is being madepursuant to the Care Everywhere program and may not contain all information available regarding this patient. Last updated 18.[facility] Allergies Active Allergy Reactions Criticality Noted Date [...] 11:17 AM CDT Height 172.7 cm (5' 8) 01/22/2017 11:17 AM CDT Body Mass Index [...] season) 2024 DEPRESSION SCREENING 06/29/2024 INFLUENZA VACCINE (#1) 2025 Respiratory Syncytial Virus (RSV) Vaccine Pt: [...] to complete this topic Insurance Care Teams Inspector Outside Steam Distribution Relationship Specialty Start Date End Date Mk Campo III, MD [address] [facility] [address] [place] [address] PCP - General Internal Medicine 01/22/17
--- OUTSIDE RECORDS SUMMARY | 2025-01-05 07:45 | XMS_ITS | Clinical Summary ---
Author Organization [facility] Address [address] [place] [phone] Care Team Providers Care Leather Coverer Name Role Phone Unavailable Primary Care Provider Unavailabl e Social History Tobacco Use Types Packs/Day Years Used Date Smoking Tobacco: Never Assessed Comments Unknown Sex and Gender Information Value Date Recorded Sex Assigned at Not on file Legal Sex Female 8:08 AM ANALYST FOOD AND BEVERAGE Gender Identity Not on file Sexual Orientation Not on file Plan of Treatment Health Maintenance Due Date Last Done Comments Hepatitis C Virus (HCV) Screening 1965 TdaP Immunization 1965 Pap Smear 09/10/1984 Cervical Cancer Screening (CCS) 09/10/1993 HPV/Cotest 09/10/1993 Cologuard 09/10/2008 Colonoscopy 09/10/2008 Colorectal Cancer Screening 09/10/2008 Immunochemical Fecal Occult Blood 09/10/2008 Pneumococcal Immunization (5 0+ years) (1 of 1 - PCV) 09/10/2013 Zoster Immunization (1 of 2) 09/10/2013 SARS-COV-2 Immunization (2 - season) 2024 12/31/2020 Influenza Immunization (#1) 2025 Respiratory Syncytial Virus (RSV) Immunization (Adult) (1 - 1-dose 75+ series) 09/10/2038 Hepatitis B Immunization Aged Out No longer eligible based on patient's age to complete this topic Human Papillomavirus (HPV) Immunization Aged Out No longer eligible b ased on patient's age to complete this topic Meningococcal Immunization (ACWY) Aged Out No longer eligible based on patient's age to complete this topic Rotavirus Immunization Aged Out No lo nger eligible based on patient's age to complete this topic
--- OUTSIDE RECORDS SUMMARY | 2025-01-05 07:45 | XMS_ITS | Encounter Summary ---
Author Organization [facility] Address [address] [place] [address] Care Team Providers Care Toddler Nanny Name Role Phone Charles Pascal Primary Care Provider [phone] Charles Pascal Unavailable [phone] Encounter Details Date Type Department Care Team (Late st Contact Info) Description 01/08/2024 [employer] Message Enc [facility] ([place]) [place], [place] [phone] [place], [facility] Provider Full proxy access Social History Tobacco Use Types Packs/Day Years Used Date Smoking Tobacco: Never Smokeless Tobacco: Never Comments:non smoker Alcohol Use Standard Drinks/Week Comments Yes 0 (1 standard drink = 0.6 oz pur e alcohol) socially Comments No Sex and Gender Information Value Date Recorded Sex Assigned at Female 08/30/2024 8:07 AM TRIAL LAWYER Legal Sex Female 6:19 PM CDT Gender Identity Not on file Sexual Orientation Not on file documented as of this encounter Plan of Treatment Not on file documented as of this encounter Visit Diagnoses Not on filedocumented in this encounter Care Teams Toddler Nanny Relationship Specialty Start Date End Date Charles Pascal PA [address] [place] [address] PCP - General PHYSICIAN DIESEL MECHANIC 06/17/21 Charles Pascal PA [address] [place] [id number] PHYSICIAN DIESEL MECHANIC 06/17/21 documented as of this encounter
--- OUTSIDE RECORDS SUMMARY | 2025-01-05 07:45 | XMS_ITS | Clinical Summary ---
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 Noah patch 5 12/28/19 25 Discontinu ed(Patient Reported) Active Problems Problem Noted Date Diagnosed Date Gastroesophageal reflux disease without esophagi tis 04/02/2018 Plantar wart, right foot 11/03/2017 Whiplash 09/06/2015 Encounters Date Type Department Care Team Description 12/27/2024 11:00 AM CDT Office Visit [facility] [address] [place] [address] [address] [place] [address] Wendie Correia NP Chronic neck pain; Neural [...] spine pain; Right shoulder pain, unspecified chronicity 12/27/2024 10:48 AM CDT - 12/27/2024 11:59 PM CDT Hospital Encounter [facility] [address] [place] [address] Neck pain; Thoracic spine pain; Right shoulder pain, unspecified chronicity Discharge Disposition: Discharge to home or self care 11/14/2024 2:40 PM CDT - 11/14/2024 4:51 PM CDT Emergency [facility] Emergency Department [address] [place] [id number] Fall, initial encounter (Primary Dx); Closed head injury, initial encounter; Acute pain of right shoulder Discharge Disposition: Discharge to home or self care from Last 3 Months Immunizations Immunization Administration Dates Next Due Influenza, Unspecified 08/30/2024(Deferr ed: Patient decision),04/30/2023(Deferred: Patient Refused),04/04/2023(Deferred: Patient decision),03/29/2022(Deferred: Patient Refused) Surgical History Surgery Date Site/Laterality Comments SECTION Medical History Medical History Date Comments Chronic neck pain DDD (degenerative disc disease), cervical Chronic lumbar pain Foraminal stenosis of lumbar region Lumbar facet arthropathy Family History Medical History Relation Name Comments [...] on file Legal Sex Female 5:38 PM [employer] Gender Identity Not on file Sexual Orientation [...] 12/27/2024 11:10 AM CDT Plan of Treatment Health Maintenance Due Date Last Done Comments Cervical Cancer Screening 1965 Hepatitis C Screening 1965 DTaP/Tdap/Td Vaccine (1 - Tdap) 09/10/1974 Hepatitis B Screening 09/10/1981 Regular Well Visit/Exam 18-64 09/10/1981 Zoster Vaccine (1 of 2) 09/10/2013 Breast Cancer Screening-Mammogram 04/10/2015 04/10/2014, 11/08/2012 Covid-19 Vaccine (2 - season) 2024 12/31/2020 Influenza Vaccine (#1) 2025 Depression Screening 07/12/2025 07/12/2024, 04/04/2022 Colon Cancer Screening-Colonoscopy 10/27/2034 10/27/2024, 02/28/2021 Colon Cancer Screening-CT Colonography Discontinued 10/27/2024, 02/28/2021 Colon Cancer Screening-DNA Stool Discontinued 10/27/2024, 02/28/2021 Colon Cancer Screening-FIT Discontinued 10/27, 02/28/2021 Colon Cancer Screening-Sigmoidoscopy Discontinued 10/27/2024, 02/28/2021 Pneumococcal vaccine <65 Aged Out No [...] demonstrate mild exacerbation of the C5 retrolisthesis. Gruc-akafxma-rqzl-right multilevel cervical facet osteoarthritis. Left-sided C5-C7 and right-sided C6-C7 foraminal impingement. Thoracic spine: No acute fracture. Minimal dextrocurvature of the midthoracic spine and levocurvature of the inferior thoracic spine. The intervertebral disc space heights are normal. IMPRESSION: 1. Mild C4-C5, severe C5-C6 and moderate C6-C7 degenerative disc disease with datg-pozveqn-nibb-right multilevel cervical facet osteoarthritis. 2. Left-sided C5-C7 and right-sided C6-C7 foraminal impingement. 3. Minimal thoracic curvature. THIS IS AN ELECTRONICALLY VERIFIED FINAL REPORT 12/29/2024 3:33 PM - Electronically signed by Sebastián Delong M.D. MF T: Report ID: [id number] Reading Location: [place] [id number] Procedure Note Sebastián Delong MD - 12/29/2024 [...] demonstrate mild exacerbation of the C5 retrolisthesis. Mkep-jotixpi-laom-right multilevel cervical facet osteoarthritis.Left-sided C5-C7 and right-sided C6-C7 foraminal impingement. Thoracic spine: No acute fracture. Minimal dextrocurvature of the midthoracic spine and levocurvature of the inferior thoracic spine. The intervertebral discspace heights are normal. IMPRESSION: 1. Mild C4-C5, severe C5-C6 and moderate C6-C7 degenerative disc disease with knxz-gybksxg-ekgg-right multilevel cervical facet osteoarthritis. 2. Left-sided C5-C7 and right-sided C6-C7 foraminal impingement. 3. Minimal thoracic curvature. THIS IS AN ELECTRONICALLY VERIFIED FINAL REPORT 12/29/2024 3:33 PM - Electronically signed by Sebastián Delong M.D. T: Report ID: [id number] Reading Location: [place] [address] us Wendie Correia NP IMG XR PROCEDURES Final Res ult * [...] demonstrate mild exacerbation of the C5 retrolisthesis. Wyqk-xqaxlbp-zbiw-right multilevel cervical facet osteoarthritis. Left-sided C5-C7 and right-sided C6-C7 foraminal impingement. Thoracic spine: No acute fracture. Minimal dextrocurvature of the midthoracic spine and levocurvature of the inferior thoracic spine. The intervertebral disc space heights are normal. IMPRESSION: 1. Mild C4-C5, severe C5-C6 and moderate C6-C7 degenerative disc disease with moih-xsdatav-vxhk-right multilevel cervical facet osteoarthritis. 2. Left-sided C5-C7 and right-sided C6-C7 foraminal impingement. 3. Minimal thoracic curvature. THIS IS AN ELECTRONICALLY VERIFIED FINAL REPORT 12/29/2024 3:33 PM - Electronically signed by Sebastián Delong M.D. T: Report ID: [id number] Reading Location: [id number] Procedure Note Sebastián Delong MD - 12/29/2024 [...] demonstrate mild exacerbation of the C5 retrolisthesis. Bodi-ffjabam-hibo-right multilevel cervical facet osteoarthritis.Left-sided C5-C7 and right-sided C6-C7 foraminal impingement. Thoracic spine: No acute fracture. Minimal dextrocurvature of the midthoracic spine and levocurvature of the inferior thoracic spine. The intervertebral discspace heights are normal. IMPRESSION: 1. Mild C4-C5, severe C5-C6 and moderate C6-C7 degenerative disc disease with govc-svdmzus-dggy-right multilevel cervical facet osteoarthritis. 2. Left-sided C5-C7 and right-sided C6-C7 foraminal impingement. 3. Minimal thoracic curvature. THIS IS AN ELECTRONICALLY VERIFIED FINAL REPORT 12/29/2024 3:33 PM - Electronically signed by Sebastián Delong M.D. 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 PS: PS Report ID: [id number] Reading Location: [id number] Procedure Note Thom Pimentel, DO - 11/14/2024 EXAM DESCRIPTION: XR SHOULDER RIGHT [...] Thom Pimentel D.O. PS: PS Report ID: [id number] Reading Location: [id number] us Shyla COSTA IMG XR PROCEDURES Final [...] with mild right neural foraminal narrowing and arxd-hm-kgfrryon left neural foraminal narrowing. L4-L5: There is circumferential disc bulge with ligamentum flavum hypertrophy causing mass effect on thecal sac with nfvp-gc-ivtxjojg spinal canal stenosis. There is facet arthropathy with moderate right neural foraminal narrowing and ptnz-gm-ewnvkbnw left neural foraminal narrowing. L5-S1: There is [...] Thom Pimentel D.O. PS: PS Report ID: [id number] Reading Location: [id number] Procedure Note Thom Pimentel, - 11/14/2024 EXAM DESCRIPTION: CT LUMBAR SPINE [...] with mild right neural foraminal narrowing and nzvd-cn-jqudebct left neural foraminal narrowing. L4-L5: There is circumferential disc bulge with ligamentum flavumhypertrophy causing mass effect on thecal sac with fcak-gn-jndgicvo spinal canalstenosis. There is facet arthropathy with moderate right neural foraminal narrowingand vmdw-hr-lqzvctug left neural foraminal narrowing. L5-S1: There is [...] Thom Pimentel D.O. PS: PS Report ID: [id number] Reading Location: [id number] Shyla COSTA IMG CT PROCEDURES Final Result * CT Cervical [...] Navjot Nolen M.D. AG: SIMON Report ID: [id number] Reading Location: [place] [address] Procedure Note Navjot Nolen MD - 11/14/2024 [...] Electronically signed by Navjot Nolen M.D. AG: AG Report ID: [id number] Reading Location: [place] [address] PROCEDURES Final Result [...] Navjot Nolen M.D. AG: SIMON Report ID: [id number] Reading Location: [place] [address] Procedure Note Navjot Nolen MD - 11/14/2024 [...] Navjot Nolen M.D. AG: SIMON Report ID: [id number] Reading Location: [id number] Shyla COSTA IMG CT PROCEDURES Final Result [...] Alvarado M.D. MD: 11:39 AM 11:39 AM [facility] [EOD] Narrative 04/10/2014 11:42 AM CDT [...] Alvarado M.D. MD: 11:39 AM 11:39 AM [facility] [EOD] Sebastien Hardy MD IMG MAMMO PROCEDURES Final Result from Last 3 Months or Most Recently Relevant to Health Maintenance [place] [address] [place] [address] CHOICE PLUS [facility] CHOICE PLUS Care Teams Stitchdown Toe Former Relationship Specialty Start Date End Date Charles Pascal Jr., PA [address] [place] [id number] PCP - General Family Medicine 04/03/22
== END 2025-01-05 07:41 | disposition home or self-care (01) ==
LOC: ANHIMG 07:43
PROVIDERS: PCP Physician Assistant; Visit Provider Nurse Practitioner
DX: Z12.31 Encounter for screening mammogram for malignant neoplasm of breast (principal)
CPT/HCPCS: 77063; 77067